=== PATIENT | female | born 1965 | race Caucasian/White ===

== ENCOUNTER 2019-08-27 11:49 | Outpatient (CLI) | payer OTHER, SELFPAY ==
[2019-08-27 13:47] LABS: Alanine Aminotransferase 18 U/L (4-35); Albumin Level 4.8 g/dL (3.5-5.1); Alkaline Phosphatase 100 U/L (38-126); Aspartate Amino Transferase 24 U/L (14-36); Bilirubin,Total 0.5 mg/dL (0.2-1.3); Blood Urea Nitrogen 11 mg/dL (7-17); Carbon Dioxide 26 mmol/L (22-30); Chloride 101 mmol/L (98-107); Cholesterol 216 mg/dL (0-200); Estimated Glomerular Filt Rate > 60; Glucose 83 mg/dL (65-105); HDL Direct 71 mg/dL; Sodium 138 mmol/L (137-145); Triglycerides 119 mg/dL (<150)
[2019-08-27 13:50] LABS: Basophils Percent Auto 0.8 % (0.2-1.2); Eosinophils Percent Auto 0.2 % (0-4.4); Hematocrit 40.7 % (37.0-47.0); Hemoglobin 13.1 g/dL (12.0-15.0); Immature Granulocyte Absolute 0.02 K/mm3 (0.00-0.031); Immature Granulocyte Percent A 0.4 % (0-0.5); Lymphocytes Percent Auto 28.3 % (18.3-44.2); Mean Corpuscular HGB Conc 32.2 g/dl (32-36); Mean Corpuscular Hemoglobin 28.9 pg (26-34); Mean Corpuscular Volume 89.8 fl (80-100); Monocytes Absolute Auto 0.5 K/mm3 (0.1-0.6); Monocytes Percent Auto 8.5 % (2.6-8.5); Neutrophils Absolute Auto 3.3 K/mm3 (1.3-6.7); Neutrophils Percent Auto 61.8 % (45.5-73.1); Platelet Count Result 333 k/mm3 (150-375); Red Blood Count 4.53 M/mm3 (4.2-5.4); Red Cell Distribution Width 14.2 % (11.5-14.5); White Blood Count 5.3 K/mm3 (4.5-10.0)
[2019-08-27 13:59] LABS: LDL Cholesterol Direct 121 mg/dL
[2019-08-27 14:12] LABS: Free T4 Free Thyroxine 1.09 ng/mL (0.78-2.19)
[2019-08-27 14:26] LABS: Creatinine Urine 253.7 mg/dL
[2019-08-27 14:30] LABS: MALB Creatinine Ratio 10.4 mg/g (0-30); Microalbumin Urine Random 26.4 mg/L (0-16.7)
[2019-08-27 14:45] LABS: Total Triiodothyronine (T3) 1.39 NG/ML (0.97-1.69)
== END 2019-08-27 11:50 | disposition home or self-care (01) ==
PROVIDERS: PCP Family Medicine; Visit Provider Family Medicine
DX: R80.9 Proteinuria, unspecified (principal); Z13.0 Encounter for screening for diseases of the blood and blood-forming organs and certain disorders involving the immune mechanism; Z13.6 Encounter for screening for cardiovascular disorders; E58 Dietary calcium deficiency
CPT/HCPCS: 36415; 80053; 80061; 82043; 82306; 84439; 84443; 84480; 85025

== ENCOUNTER 2019-10-04 08:15 | Outpatient (CLI) | payer OTHER, SELFPAY ==
--- NOTE | ~2019-10-04 | XR_ITS ---
EXAMINATION: XR_ENEMABAC_CR DATE: 10/04/2019 10:01 INDICATION: Incomplete colonoscopy TECHNIQUE: A major assembly inspector radiograph was obtained. A catheter was inserted into the patient's rectum. Contra st was infused by gravity. Gas was infused by hand pump. Fluoroscopic spot images and conventional ra diographs were obtained. Fluoroscopy exposure time was 3.7 minutes. The DAP for this procedure was 13 1.5 Gycm2. 36 images were obtained. COMPARISON: None. FINDINGS: Operations Clerk image demonstrates changes of cholecystectomy, lumbar fusion, and left total hip arth roplasty as well as ventriculoperitoneal shunt catheter tubing. There are phleboliths of the pelvis. No dilated loops of bowel are evident. The colon is normal in caliber without evidence of stricture o r distention. No suspicious mass is identified. IMPRESSION: 1. Unremarkable examination. Reviewed, dictated and finalized at location A. ONAL LINES ADVISOR
--- NOTE | ~2019-10-04 | MM_ITS ---
EXAMINATION: MM screening [facility] BI w iraida HISTORY: Screening mammogram TECHNIQUE: Craniocaudal and mediolateral oblique 3-D tomosynthesis images were obtained and synthetic 2-D images were generated. CAD analysis was submitted and interpreted. COMPARISON: Comparison to multiple prior studies sequentially, with oldest reviewed study dated 10/25. BREAST PARENCHYMAL COMPOSITION: There are scattered areas of fibroglandular density. FINDINGS: There are benign-appearing bilateral breast masses which have decreased in size over time. There is no evidence of suspicious mass, calcification, or architectural distortion to suggest malign edilma in either breast. There has been no suspicious interval change. IMPRESSION: 1. No mammographic evidence of malignancy. 2. Recommend routine screening mammography in one year. BI-RADS Category 2: Benign finding(s).. Reviewed, dictated and finalized at location A. PRODUCTION ASSISTANT
== END 2019-10-04 08:16 | disposition home or self-care (01) ==
PROVIDERS: PCP Family Medicine; Visit Provider Nurse Practitioner Family
DX: Z12.31 Encounter for screening mammogram for malignant neoplasm of breast (principal); Z53.9 Procedure and treatment not carried out, unspecified reason; Z80.0 Family history of malignant neoplasm of digestive organs
CPT/HCPCS: 74280; 77063; 77067

== ENCOUNTER 2020-09-23 14:04 | Outpatient (CLI) | payer OTHER, SELFPAY ==
--- NOTE | ~2020-09-23 | CT_ITS ---
EXAMINATION: CT femur LT wo con DATE: 09/23/2020 14:38 INDICATION: Left femoral pain TECHNIQUE: High resolution computed tomography (CT) of the left femur was performed without intraveno us contrast. Additional sagittal and coronal reconstructions were performed. Automated exposure contr ol and iterative reconstruction technique were employed. The dose-length product was 1127.18 mGy-cm. COMPARISON: Left hip radiograph dated 10/05/2010 FINDINGS: Noncemented left total hip arthroplasty which appears well seated in near-anatomic alignment. The marilee tabular component is affixed with a couple screws. No significant asymmetric polyethylene liner wear appreciated. There is a small lucency with thin sclerotic margins along the anterosuperior aspect of the acetabulum which could be related to either localized particle disease or degenerative subarticul ar cystic change related to arthritis preceding the arthroplasty. Comminuted intra-articular fracture of the distal left femur which extends approximately 11 cm proxim al to the level of the joint line. This is fixed with a lateral plate and screws including distal scr ews spanning the medial and lateral femoral condyles. The distal fragments of the medial and lateral femoral condyles have healed with a relatively congruent articular surface along the fracture line in volving the weightbearing medial femoral condyle. There is a persistent fracture gap measuring a mini mum of 7 mm along the articular surface of the medial trochlea. A healing fragment of bone ejection a couple millimeter anteriorly from the expected location of the trochlear groove. There is a residual lucent fracture gap between the main proximal diaphyseal fracture fragment and th e fused fragments comprising the medial and lateral femoral condyles and anteromedial aspect of the m etadiaphyseal region. At its minimum the lucency measures approximately mm between the anteromedial m etaphyseal diaphyseal fragment and some callus formation along the medial cortex of the proximal frag ment. No evident olrri-cortication along the ununited portion of the fracture to suggest nonunion. No evident hip or knee joint effusion. Soft tissues in the visualized pelvis and left thigh are unrem arkable. No pathologically enlarged left pelvic or inguinal lymphadenopathy. IMPRESSION: 1. Healing internally fixed intra-articular fracture of the distal left femur with fracture gap and s ome incongruity along the articular cortex at the patellofemoral articulation. The distal fragments i nfused over the main metadiaphyseal fracture plane remains ununited. 2. Noncemented left total hip arthroplasty in near-anatomic alignment with no joint effusion or acute osseous abnormality. Reviewed, dictated and finalized at location A. ET RESEARCH ANALYST IMPRESSION: 1. Healing internally fixed intra-articular fracture of the distal left femur w ith fracture gap and some incongruity along the articular cortex at the patello femoral articulation. The distal fragments infused over the main metadiaphyseal fracture plane remains ununited. 2. Noncemented left total hip arthroplasty in near-anatomic alignment with no j oint effusion or acute osseous abnormality.
== END 2020-09-23 14:05 | disposition home or self-care (01) ==
PROVIDERS: PCP Internal Medicine
DX: M89.8X5 Other specified disorders of bone, thigh (principal); S72.402D Unspecified fracture of lower end of left femur, subsequent encounter for closed fracture with routine healing; Z96.642 Presence of left artificial hip joint
CPT/HCPCS: 73700

== ENCOUNTER 2020-10-30 09:47 | Outpatient (CLI) | payer OTHER, SELFPAY ==
[2020-10-30 10:24] LABS: Basophils Percent Auto 0.8 % (0.2-1.2); Hemoglobin 13.6 g/dL (12.0-15.0); Lymphocytes Absolute Auto 1.18 K/mm3 (0.9-3.2); Lymphocytes Percent Auto 32.2 % (18.3-44.2); Mean Corpuscular HGB Conc 33.2 g/dl (32-36); Mean Corpuscular Hemoglobin 31.5 pg (26-34); Mean Corpuscular Volume 94.9 fl (80-100); Mean Platelet Volume 9.1 fl (7.4-10.4); Monocytes Absolute Auto 0.4 K/mm3 (0.1-0.6); Monocytes Percent Auto 11.2 % (2.6-8.5); Neutrophils Absolute Auto 2.1 K/mm3 (1.3-6.7); Neutrophils Percent Auto 55.8 % (45.5-73.1); Platelet Count Result 239 k/mm3 (150-375); Red Blood Count 4.32 M/mm3 (4.2-5.4); Red Cell Distribution Width 13.1 % (11.5-14.5); White Blood Count 3.7 K/mm3 (4.5-10.0)
[2020-10-30 10:41] LABS: Alanine Aminotransferase 15 U/L (4-35); Albumin Level 4.3 g/dL (3.5-5.1); Alkaline Phosphatase 88 U/L (38-126); Anion Gap 6 mmol/L (8-16); Aspartate Amino Transferase 24 U/L (14-36); Bilirubin,Total 0.6 mg/dL (0.2-1.3); Blood Urea Nitrogen 10 mg/dL (7-17); Calcium 9.3 mg/dL (8.4-10.2); Carbon Dioxide 30 mmol/L (22-30); Chloride 105 mmol/L (98-107); Cholesterol 192 mg/dL (0-200); Estimated Glomerular Filt Rate > 60; Glucose 97 mg/dL (65-105); HDL Direct 56 mg/dL; Potassium 3.9 mmol/L (3.4-5.0); Sodium 141 mmol/L (137-145); Triglycerides 105 mg/dL (<150)
[2020-10-30 10:45] LABS: Hemoglobin A1C 4.8 % (<5.7)
[2020-10-30 10:52] LABS: LDL Cholesterol Direct 101 mg/dL
[2020-10-30 11:21] LABS: Free T4 Free Thyroxine 0.86 ng/mL (0.78-2.19)
[2020-11-03 08:34] LABS: Insulin Level Total 3.1 uIU/mL (<=19.6)
[2020-11-04 00:53] LABS: Vitamin D 1,25 (OH)2 Total 42 pg/mL (18-72); Vitamin D2 1,25 (OH)2 <8 pg/mL; Vitamin D3 1,25 (OH)2 42 pg/mL
== END 2020-10-30 09:48 | disposition home or self-care (01) ==
LOC: ANHLAB 09:50
PROVIDERS: PCP Internal Medicine; Visit Provider Internal Medicine
DX: E55.9 Vitamin D deficiency, unspecified (principal); Z79.899 Other long term (current) drug therapy
CPT/HCPCS: 36415; 80053; 80061; 82652; 83036; 83525; 84439; 84443; 85025

== ENCOUNTER 2020-11-19 08:55 | Outpatient (CLI) | payer OTHER, SELFPAY ==
--- NOTE | ~2020-11-19 | DEXA_ITS ---
Bone Density Report Name: Sahara Colby Age: 55 Sex: Female Ethnicity: White Date of : 1965 Indication: postmenopausal; parental hip fracture; height loss; prior fracture; Referring Provider: GONZALO NORTON Study: Bone densitometry was performed. Exam Date: November 19, 2020 Accession number: [id number] Bone Density: Region BMD T-score Z-score Classification AP Spine (L1, L2, L3) 0.868 -1.4 -0.2 Osteopenia Femoral Neck (Right) 0.805 -0.4 0.7 Normal Total Hip (Right) 0.835 -0.9 -0.1 Normal World Health Organization criteria for BMD impression classify patients as: Normal (T-score at or above -1.0), Osteopenia (T-score between -1.0 and -2.5), or Osteoporosis (T-score at or below -2.5). 10-year Fracture Risk: FRAX not reported because: Prior hip or vertebral fracture Treated for osteoporosis Clinical Information Provided by Patient: Have had a previous hip or vertebral fracture Has had a low trauma fracture Parent has had a hip fracture Is being treated for osteoporosis Has used the following medications: Forteo (i.e. parathyroid hormone), Fosamax (i.e. alendronate), Vitamin D Patient maximum height was 70 Menopause Age: 48 Drinks caffeinated beverages Onset of menses at age 15 Number of children 2 Missed period for more than 6 months in a row Impression: The patient has low bone mass, based on the Total Spine T-score. The patient has risk factors, including: parental hip fracture, previous fracture. Discussion: It is important to ask patients whether they are taking their medications and to encourage continued and appropriate compliance with their osteoporosis therapies to reduce fracture risk. It is also important to review their risk factors and encourage appropriate calcium and vitamin D intakes, exercise, fall prevention and other lifestyle measures. Follow-Up: Consider a repeat BMD and Vertebral Fracture Assessment (VFA) exam in 2 years or sooner if medically necessary, to reassess this patient's status. Reported by: VENESSA on 11/19/2020 9:28:00 AM. Reviewed, dictated and finalized at location A. ENOCH
--- NOTE | ~2020-11-19 | MM_ITS ---
EXAMINATION: MM screening [facility] BI w ir[place]ada HISTORY: Screening TECHNIQUE: Craniocaudal and mediolateral oblique 3-D tomosynthesis images were obtained and synthetic 2-D images were generated. CAD analysis was submitted and interpreted. COMPARISON: Comparison to multiple prior studies sequentially, with oldest reviewed study dated 11/03. BREAST PARENCHYMAL COMPOSITION: The breasts are heterogeneously dense, which may obscure small masses . FINDINGS: Bilateral breast masses are stable or diminished in size compared with prior examination. N o new masses, calcifications or architectural distortion to suggest malignancy. There is no evidence of suspicious mass, calcification, or architectural distortion to suggest malignancy in either breast . There has been no suspicious interval change. IMPRESSION: 1. No mammographic evidence of malignancy. 2. Recommend routine screening mammography in one year. BI-RADS Category 2: Benign finding(s). Reviewed, dictated and finalized at location A.
== END 2020-11-19 08:56 | disposition home or self-care (01) ==
PROVIDERS: PCP Internal Medicine; Visit Provider Internal Medicine
DX: Z12.31 Encounter for screening mammogram for malignant neoplasm of breast (principal); Z78.0 Asymptomatic menopausal state
CPT/HCPCS: 77063; 77067; 77080

== ENCOUNTER 2020-11-19 10:23 | Outpatient (CLI) | payer OTHER, SELFPAY | END 2020-11-19 10:24 | disposition home or self-care (01) | PROVIDERS: PCP Internal Medicine | DX: Z23 Encounter for immunization (principal) | CPT/HCPCS: 0001A; 91300 ==

== ENCOUNTER 2020-12-10 11:19 | Outpatient (CLI) | payer OTHER, SELFPAY | END 2020-12-10 11:20 | disposition home or self-care (01) | LOC: ANHCOVIDVC 11:19 | PROVIDERS: PCP Internal Medicine | DX: Z23 Encounter for immunization (principal) | CPT/HCPCS: 0002A; 91300 ==

== ENCOUNTER 2021-05-28 13:25 | Outpatient (CLI) | payer OTHER, SELFPAY ==
[2021-05-28 14:01] LABS: Alanine Aminotransferase 17 U/L (4-35); Alkaline Phosphatase 92 U/L (38-126); Anion Gap 10 mmol/L (8-16); Aspartate Amino Transferase 26 U/L (14-36); Bilirubin,Total 0.8 mg/dL (0.2-1.3); Blood Urea Nitrogen 11 mg/dL (7-17); Calcium 10.2 mg/dL (8.4-10.2); Carbon Dioxide 28 mmol/L (22-30); Chloride 101 mmol/L (98-107); Cholesterol 224 mg/dL (0-200); Estimated Glomerular Filt Rate > 60; Glucose 97 mg/dL (65-110); HDL Direct 65 mg/dL; Potassium 3.9 mmol/L (3.4-5.0); Sodium 139 mmol/L (137-145); Triglycerides 88 mg/dL (<150)
[2021-05-28 14:12] LABS: LDL Cholesterol Direct 127 mg/dL
[2021-06-01 07:36] LABS: Apolipoprotein B 101 mg/dL (<90)
[2021-06-02 11:47] LABS: Vitamin D 1,25 (OH)2 Total 45 pg/mL (18-72); Vitamin D2 1,25 (OH)2 <8 pg/mL; Vitamin D3 1,25 (OH)2 45 pg/mL
== END 2021-05-28 13:26 | disposition home or self-care (01) ==
LOC: ANHLAB 13:27
PROVIDERS: PCP Internal Medicine; Visit Provider Internal Medicine
DX: Z51.81 Encounter for therapeutic drug level monitoring (principal); Z79.899 Other long term (current) drug therapy; E55.9 Vitamin D deficiency, unspecified
CPT/HCPCS: 36415; 80053; 80061; 82172; 82652

== ENCOUNTER 2021-11-17 10:58 | Outpatient (CLI) | payer OTHER, SELFPAY ==
[2021-11-17 11:25] LABS: Basophils Percent Auto 0.6 % (0.2-1.2); Hematocrit 39.5 % (37.0-47.0); Hemoglobin 13.3 g/dL (12.0-15.0); Immature Granulocyte Absolute 0.02 K/mm3 (0.00-0.031); Immature Granulocyte Percent A 0.3 % (0-0.5); Lymphocytes Absolute Auto 1.28 K/mm3 (0.9-3.2); Mean Corpuscular HGB Conc 33.7 g/dl (32-36); Mean Corpuscular Hemoglobin 32.3 pg (26-34); Mean Corpuscular Volume 95.9 fl (80-100); Mean Platelet Volume 9.6 fl (7.4-10.4); Monocytes Absolute Auto 0.4 K/mm3 (0.1-0.6); Monocytes Percent Auto 6.2 % (2.6-8.5); Neutrophils Absolute Auto 5.3 K/mm3 (1.3-6.7); Neutrophils Percent Auto 74.9 % (45.5-73.1); Platelet Count Result 250 k/mm3 (150-375); Red Blood Count 4.12 M/mm3 (4.2-5.4); Red Cell Distribution Width 12.6 % (11.5-14.5); White Blood Count 7.1 K/mm3 (4.5-10.0)
[2021-11-17 12:11] LABS: Alanine Aminotransferase 14 U/L (4-35); Albumin Level 4.2 g/dL (3.5-5.1); Alkaline Phosphatase 70 U/L (38-126); Anion Gap 5 mmol/L (8-16); Aspartate Amino Transferase 26 U/L (14-36); Bilirubin,Total 0.3 mg/dL (0.2-1.3); Blood Urea Nitrogen 14 mg/dL (7-17); Carbon Dioxide 30 mmol/L (22-30); Chloride 104 mmol/L (98-107); Cholesterol 165 mg/dL (0-200); Estimated Glomerular Filt Rate > 60; Glucose 101 mg/dL (65-110); HDL Direct 59 mg/dL; Potassium 4.1 mmol/L (3.4-5.0); Sodium 139 mmol/L (137-145); Triglycerides 53 mg/dL (<150)
[2021-11-17 12:34] LABS: Hemoglobin A1C 5.1 % (<5.7)
[2021-11-17 12:37] LABS: LDL Cholesterol Direct 72 mg/dL
[2021-11-17 12:46] LABS: Free T4 Free Thyroxine 0.84 ng/mL (0.78-2.19)
== END 2021-11-17 10:59 | disposition home or self-care (01) ==
LOC: ANHLAB 11:00
PROVIDERS: PCP Internal Medicine; Visit Provider Internal Medicine
DX: E78.2 Mixed hyperlipidemia (principal); Z13.29 Encounter for screening for other suspected endocrine disorder; Z51.81 Encounter for therapeutic drug level monitoring; Z79.899 Other long term (current) drug therapy
CPT/HCPCS: 36415; 80053; 80061; 83036; 84439; 84443; 85025

== ENCOUNTER → 2021-11-24 14:29 | Outpatient (REF) | payer OTHER, SELFPAY | LOC: ANHLAB 14:29 | PROVIDERS: PCP Internal Medicine; Visit Provider Nurse Practitioner | DX: C44.229 Squamous cell carcinoma of skin of left ear and external auricular canal (principal) | CPT/HCPCS: 88305 ==

== ENCOUNTER 2022-01-08 12:29 | Outpatient (CLI) | payer OTHER, SELFPAY ==
--- NOTE | ~2022-01-08 | MR_ITS ---
EXAMINATION: MR brain/brain stem wo/w con DATE: 01/08/2022 14:11 INDICATION: Headache, unspecified. TECHNIQUE: Magnetic resonance imaging (MRI) of the brain and brainstem was performed without and with 15 mL MultiHance intravenous contrast. COMPARISON: Brain MRI 08/27/2013 FINDINGS: There is no intracranial hemorrhage, acute infarction, or abnormal intracranial mass lesion . There is diffuse pachymeningeal thickening and enhancement. There is a developmental venous anomaly in left frontal lobe. The ventricles are normal in size. There is a reconstruction plate that floor of left orbit. The paranasal sinuses are clear. The mastoid air cells are normal. IMPRESSION: 1. Diffuse pachymeningeal thickening and enhancement. This finding is most commonly an incidental fin ding secondary to a history of lumbar puncture. Less commonly, this finding may be seen with intracra nial hypotension or meningitis. Reviewed, dictated and finalized at location A. IMPRESSION: 1. Diffuse pachymeningeal thickening and enhancement. This finding is most comm only an incidental finding secondary to a history of lumbar puncture. Less comm only, this finding may be seen with intracranial hypotension or meningitis.
--- NOTE | ~2022-01-08 | XR_ITS ---
EXAMINATION: XR orbit foreign body DATE: 01/08/2022 12:58 INDICATION: Left orbital fracture. MRI clearance. TECHNIQUE: 3 views of the orbits were obtained. COMPARISON: None. FINDINGS: There is rightward deviation of the nasal septum. No acute fracture. There is a reconstruct ion plate with screws at the floor of left orbit. IMPRESSION: 1. Reconstruction plate with screws at the floor of left orbit. Reviewed, dictated and finalized at location A.
[2022-01-08 13:16] LABS: Estimated Glomerular Filt Rate > 60
== END 2022-01-08 12:30 | disposition home or self-care (01) ==
PROVIDERS: PCP Internal Medicine; Visit Provider Internal Medicine
DX: R51.9 Headache, unspecified (principal)
CPT/HCPCS: 70030; 70553; A9577

== ENCOUNTER 2022-01-25 01:36 | Day surgery (SDC) | payer OTHER, SELFPAY ==
[2022-01-11 14:45] VITALS: BMI 25.2
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
[2022-01-25 10:31] VITALS: BP 128/80; PULSE 66; RESP 18; TEMP 36.1; O2SAT 66; BMI 25.8
[2022-01-25] MEDS: LACTATED RINGERS 1,000 ML 150 ML IV CONT (10:47)
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
[2022-01-25 11:31] VITALS: BP 96/60; PULSE 58; RESP 15; O2SAT 99
[2022-01-25 11:41] VITALS: BP 111/66; PULSE 56; RESP 15; O2SAT 98
[2022-01-25 11:51] VITALS: BP 126/77; PULSE 54; RESP 21; O2SAT 99
== END 2022-01-25 11:53 | disposition home or self-care (01) ==
PROVIDERS: PCP Internal Medicine; Visit Provider Internal Medicine Gastroenterology
PROC: 0DJD8ZZ Inspection of Lower Intestinal Tract, Via Natural or Artificial Opening Endoscopic (ICD-10-PCS; CPT 45378; principal; 2022-01-25 11:30)
DX: Z12.11 Encounter for screening for malignant neoplasm of colon (principal); K64.8 Other hemorrhoids; Z80.0 Family history of malignant neoplasm of digestive organs; E78.5 Hyperlipidemia, unspecified; F41.8 Other specified anxiety disorders; F90.9 Attention-deficit hyperactivity disorder, unspecified type; G25.81 Restless legs syndrome
CPT/HCPCS: 45378; J2704; J7120

== ENCOUNTER → 2022-03-01 10:37 | Outpatient (REF) | payer OTHER, SELFPAY | LOC: ANHLAB 10:37 | PROVIDERS: PCP Internal Medicine; Visit Provider Nurse Practitioner | DX: C44.311 Basal cell carcinoma of skin of nose (principal) | CPT/HCPCS: 88305; 88331 ==

== ENCOUNTER 2022-05-12 14:43 | Outpatient (CLI) | payer OTHER, SELFPAY ==
[2022-05-12 15:37] LABS: Basophils Percent Auto 0.7 % (0.2-1.2); Hematocrit 38.4 % (37.0-47.0); Hemoglobin 12.6 g/dL (12.0-15.0); Immature Granulocyte Absolute 0.01 K/mm3 (0.00-0.031); Immature Granulocyte Percent A 0.2 % (0-0.5); Lymphocytes Absolute Auto 1.14 K/mm3 (0.9-3.2); Lymphocytes Percent Auto 27.9 % (18.3-44.2); Mean Corpuscular HGB Conc 32.8 g/dl (32-36); Mean Corpuscular Volume 94.3 fl (80-100); Mean Platelet Volume 9.6 fl (7.4-10.4); Monocytes Absolute Auto 0.4 K/mm3 (0.1-0.6); Monocytes Percent Auto 10.8 % (2.6-8.5); Neutrophils Absolute Auto 2.5 K/mm3 (1.3-6.7); Neutrophils Percent Auto 60.4 % (45.5-73.1); Platelet Count Result 252 k/mm3 (150-375); Red Blood Count 4.07 M/mm3 (4.2-5.4); Red Cell Distribution Width 12.4 % (11.5-14.5); White Blood Count 4.1 K/mm3 (4.5-10.0)
[2022-05-12 15:47] LABS: Hemoglobin A1C 5.3 % (<5.7)
[2022-05-12 15:50] LABS: Alanine Aminotransferase 24 U/L (6-35); Albumin Level 4.6 g/dL (3.5-5.1); Alkaline Phosphatase 77 U/L (38-126); Anion Gap 9 mmol/L (8-16); Aspartate Amino Transferase 26 U/L (14-36); Bilirubin,Total 0.5 mg/dL (0.2-1.3); Blood Urea Nitrogen 13 mg/dL (7-17); Calcium 9.3 mg/dL (8.4-10.2); Carbon Dioxide 28 mmol/L (22-30); Chloride 101 mmol/L (98-107); Cholesterol 174 mg/dL (0-200); Estimated Glomerular Filt Rate > 60; Glucose 118 mg/dL (65-110); HDL Direct 60 mg/dL; Potassium 3.3 mmol/L (3.4-5.0); Sodium 138 mmol/L (137-145); Triglycerides 100 mg/dL (<150)
[2022-05-12 16:01] LABS: LDL Cholesterol Direct 83 mg/dL
[2022-05-12 16:41] LABS: Free T4 Free Thyroxine 0.96 ng/mL (0.78-2.19); Vitamin D 25 Hydroxy 77.6 ng/mL
[2022-05-12 17:18] LABS: Appearance Urine Clear (Clear); Bilirubin Urine Negative (Negative); Blood Urine Negative (Negative); Color Urine Yellow (Yellow); Glucose Urine UA Negative (Negative); Ketones Urine Negative (Negative); Leukocyte Esterase Ur 1+ LEU/UL (Negative); Nitrate Urine Negative (Negative); Protein Urine Negative (Negative); Urobilinogen Urine 0.2 mg/dL (<2.0); pH Urine 5.5 (5.0-9.0)
[2022-05-12 17:23] LABS: RBC Urine 0-2 /hpf (0-2); Squamous Epithelial Cell Urine Rare /hpf (Few); WBC Urine 0-3 /hpf
[2022-05-12 17:27] LABS: Add Urine Microscopic? YES
== END 2022-05-12 14:44 | disposition home or self-care (01) ==
LOC: ANHLAB 14:44
PROVIDERS: PCP Internal Medicine; Visit Provider Internal Medicine
DX: E78.5 Hyperlipidemia, unspecified (principal); Z13.29 Encounter for screening for other suspected endocrine disorder; Z79.899 Other long term (current) drug therapy; E55.9 Vitamin D deficiency, unspecified; Z13.1 Encounter for screening for diabetes mellitus
CPT/HCPCS: 36415; 80048; 80061; 80076; 81001; 82306; 83036; 84439; 84443; 85025

== ENCOUNTER 2022-12-14 17:21 | Outpatient (CLI) | payer OTHER, SELFPAY ==
[2022-12-14 17:44] LABS: Alanine Aminotransferase 22 U/L (6-35); Albumin Level 4.2 g/dL (3.5-5.1); Alkaline Phosphatase 71 U/L (38-126); Anion Gap 3 mmol/L (8-16); Aspartate Amino Transferase 28 U/L (14-36); Bilirubin,Total 0.5 mg/dL (0.2-1.3); Blood Urea Nitrogen 11 mg/dL (7-17); Calcium 9.1 mg/dL (8.4-10.2); Carbon Dioxide 31 mmol/L (22-30); Chloride 105 mmol/L (98-107); Cholesterol 204 mg/dL (0-200); Estimated Glomerular Filt Rate > 60; Glucose 115 mg/dL (65-110); HDL Direct 61 mg/dL; Sodium 139 mmol/L (137-145); Triglycerides 157 mg/dL (<150)
[2022-12-14 17:55] LABS: LDL Cholesterol Direct 102 mg/dL
== END 2022-12-14 17:22 | disposition home or self-care (01) ==
LOC: ANHLAB 17:23
PROVIDERS: PCP Internal Medicine; Visit Provider Internal Medicine
DX: Z51.81 Encounter for therapeutic drug level monitoring (principal); Z79.899 Other long term (current) drug therapy; E78.5 Hyperlipidemia, unspecified
CPT/HCPCS: 36415; 80053; 80061

== ENCOUNTER 2022-12-15 12:29 | Outpatient (CLI) | payer OTHER, SELFPAY ==
[2022-12-20 19:38] LABS: Lyme Disease Ab (IgM), Blot Negative (Negative); Lyme Disease Ab(IgG), Blot Negative (Negative)
== END 2022-12-15 12:30 | disposition home or self-care (01) ==
LOC: ANHLAB 12:31
PROVIDERS: PCP Internal Medicine; Visit Provider Internal Medicine
DX: T14.8XXA Other injury of unspecified body region, 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 (principal)
CPT/HCPCS: 36415; 86617

== ENCOUNTER 2023-05-31 12:54 | Outpatient (CLI) | payer OTHER, SELFPAY | END 2023-05-31 12:55 | disposition home or self-care (01) | LOC: ANHLAB 12:55 | PROVIDERS: PCP Internal Medicine; Visit Provider Internal Medicine | DX: R53.83 Other fatigue (principal); Z79.899 Other long term (current) drug therapy | CPT/HCPCS: 36415; 84439; 84443 ==

== ENCOUNTER 2023-06-16 12:12 | Outpatient (CLI) | payer OTHER, SELFPAY ==
[2023-06-16 13:18] LABS: Vitamin D 25 Hydroxy 56.7 ng/mL
[2023-06-16 13:25] LABS: Alanine Aminotransferase 27 U/L (6-35); Albumin Level 4.5 g/dL (3.5-5.1); Alkaline Phosphatase 80 U/L (38-126); Anion Gap 9 mmol/L (8-16); Aspartate Amino Transferase 33 U/L (14-36); Bilirubin,Total 0.7 mg/dL (0.2-1.3); Blood Urea Nitrogen 10 mg/dL (7-17); Calcium 9.6 mg/dL (8.4-10.2); Carbon Dioxide 28 mmol/L (22-30); Chloride 102 mmol/L (98-107); Cholesterol 194 mg/dL (0-200); Estimated Glomerular Filt Rate > 60; Glucose 91 mg/dL (65-110); HDL Direct 62 mg/dL; Potassium 3.3 mmol/L (3.4-5.0); Sodium 139 mmol/L (137-145); Triglycerides 114 mg/dL (<150)
[2023-06-16 13:38] LABS: LDL Cholesterol Direct 101 mg/dL
== END 2023-06-16 12:13 | disposition home or self-care (01) ==
LOC: ANHLAB 12:13
PROVIDERS: PCP Internal Medicine; Visit Provider Internal Medicine
DX: Z13.1 Encounter for screening for diabetes mellitus (principal); Z79.899 Other long term (current) drug therapy; E78.5 Hyperlipidemia, unspecified; E55.9 Vitamin D deficiency, unspecified; Z13.29 Encounter for screening for other suspected endocrine disorder
CPT/HCPCS: 36415; 80053; 80061; 82306; 83036; 84439; 84443

== ENCOUNTER 2023-11-22 12:48 | Outpatient (CLI) | payer OTHER, SELFPAY ==
--- NOTE | ~2023-11-22 | CT_ITS ---
Head CT History: Headache Technique: Axial imaging of the brain was performed prior to and following intravenous administratio n of 100 cc of Omnipaque 350 contrast material. Dose reduction technique was used on this scan by uti kalyning automated exposure control and iterative reconstruction technique. The dose-length product (DL P) was 1362.00 mGy-cm. Findings: There is no evidence of intracranial hemorrhage, mass lesion, or acute infarct. Brain par enchyma appears normal. The ventricles and subarachnoid spaces are normal in size. The calvarium ap pears normal. The visualized paranasal sinuses and mastoid air cells are clear. No abnormal postcontrast enhancement identified. Impression: No significant abnormality seen. Reviewed, dictated and finalized at [facility]. Impression: No significant abnormality seen.
[2023-11-22 13:15] LABS: Estimated Glomerular Filt Rate > 60
== END 2023-11-22 12:49 | disposition home or self-care (01) ==
PROVIDERS: PCP Internal Medicine; Visit Provider Internal Medicine
DX: R51.9 Headache, unspecified (principal)
CPT/HCPCS: 70470; Q9967

== ENCOUNTER 2024-01-25 11:49 | Outpatient (CLI) | payer OTHER, SELFPAY ==
[2024-01-25 12:59] LABS: Alanine Aminotransferase 22 U/L (6-35); Albumin Level 4.7 g/dL (3.5-5.1); Alkaline Phosphatase 69 U/L (38-126); Anion Gap 7 mmol/L (4-12); Aspartate Amino Transferase 26 U/L (14-36); Bilirubin,Total 0.7 mg/dL (0.2-1.3); Blood Urea Nitrogen 12 mg/dL (7-17); Calcium 9.6 mg/dL (8.4-10.2); Carbon Dioxide 29 mmol/L (22-30); Chloride 105 mmol/L (98-107); Cholesterol 144 mg/dL (0-200); Estimated Glomerular Filt Rate > 60; Glucose 105 mg/dL (65-110); HDL Direct 59 mg/dL; Potassium 4.1 mmol/L (3.4-5.0); Sodium 141 mmol/L (137-145); Triglycerides 82 mg/dL (<150)
[2024-01-25 13:11] LABS: LDL Cholesterol Direct 67 mg/dL
== END 2024-01-25 11:50 | disposition home or self-care (01) ==
LOC: ANHLAB 11:52
PROVIDERS: PCP Internal Medicine; Visit Provider Internal Medicine
DX: E78.5 Hyperlipidemia, unspecified (principal); Z79.899 Other long term (current) drug therapy
CPT/HCPCS: 36415; 80053; 80061

== ENCOUNTER 2024-03-09 10:41 | Outpatient (CLI) | payer OTHER, SELFPAY ==
--- NOTE | ~2024-03-09 | MM_ITS ---
EXAMINATION: MM screening [facility] BI w iraida HISTORY: Screening TECHNIQUE: Craniocaudal and mediolateral oblique 3-D tomosynthesis images were obtained and synthetic 2-D images were generated. CAD analysis was submitted and interpreted. COMPARISON: Comparison to multiple prior studies sequentially, with oldest reviewed study dated 03/28. BREAST PARENCHYMAL COMPOSITION: Not dense: There are scattered areas of fibroglandular density. FINDINGS: There is no evidence of suspicious mass, calcification, or architectural distortion to sugg est malignancy in either breast. There has been no suspicious interval change. IMPRESSION: 1. No mammographic evidence of malignancy. 2. Recommend routine screening mammography in one year. BI-RADS Category 1: Negative Reviewed, dictated and finalized at location B.
== END 2024-03-09 10:42 | disposition home or self-care (01) ==
PROVIDERS: PCP Internal Medicine; Visit Provider Nurse Practitioner Obstetrics & Gynecology
DX: Z12.31 Encounter for screening mammogram for malignant neoplasm of breast (principal)
CPT/HCPCS: 77063; 77067

== ENCOUNTER 2024-04-24 07:51 | Outpatient (CLI) | payer OTHER, SELFPAY ==
[2024-05-16 16:18] VITALS: BMI 26.6
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
== END 2024-04-25 07:18 | disposition home or self-care (01) ==
LOC: ANHCSM 07:52
PROVIDERS: PCP Internal Medicine; Visit Provider Internal Medicine
DX: G47.10 Hypersomnia, unspecified (principal); G47.61 Periodic limb movement disorder; G47.33 Obstructive sleep apnea (adult) (pediatric)
CPT/HCPCS: 95810

== ENCOUNTER 2024-05-17 15:30 | Outpatient (CLI) | payer OTHER, SELFPAY ==
[2024-05-17 16:17] LABS: Basophils Absolute Auto 0.1 K/mm3 (0.0-0.1); Basophils Percent Auto 0.8 % (0.2-1.2); Hematocrit 41.1 % (37.0-47.0); Hemoglobin 13.4 g/dL (12.0-15.0); Immature Granulocyte Absolute 0.01 K/mm3 (0.00-0.031); Immature Granulocyte Percent A 0.2 % (0-0.5); Lymphocytes Absolute Auto 1.54 K/mm3 (0.9-3.2); Lymphocytes Percent Auto 24.9 % (18.3-44.2); Mean Corpuscular HGB Conc 32.6 g/dl (32-36); Mean Corpuscular Hemoglobin 30.7 pg (26-34); Mean Corpuscular Volume 94.1 fl (80-100); Mean Platelet Volume 9.7 fl (7.4-10.4); Monocytes Absolute Auto 0.6 K/mm3 (0.1-0.6); Neutrophils Percent Auto 64.1 % (45.5-73.1); Platelet Count Result 275 k/mm3 (150-375); Red Blood Count 4.37 M/mm3 (4.2-5.4); Red Cell Distribution Width 12.8 % (11.5-14.5); White Blood Count 6.2 K/mm3 (4.5-10.0)
[2024-05-17 18:51] LABS: Iron 137 ug/dL (37-170)
[2024-05-17 18:56] LABS: Folic Acid 7.7 ng/mL (2.76->20)
[2024-05-17 19:00] LABS: Percent Iron Saturation 37 % (20-50)
[2024-05-17 19:09] LABS: Free T4 Free Thyroxine 0.87 ng/mL (0.78-2.19)
== END 2024-05-17 15:31 | disposition home or self-care (01) ==
LOC: ANHLAB 15:34
PROVIDERS: PCP Internal Medicine; Visit Provider Internal Medicine
DX: D64.9 Anemia, unspecified (principal); R41.89 Other symptoms and signs involving cognitive functions and awareness; Z79.899 Other long term (current) drug therapy; Z13.21 Encounter for screening for nutritional disorder; Z13.29 Encounter for screening for other suspected endocrine disorder
CPT/HCPCS: 36415; 82607; 82728; 82746; 83540; 83550; 84439; 84443; 85025

== ENCOUNTER 2024-06-06 13:49 | Outpatient (CLI) | payer OTHER, SELFPAY ==
--- NOTE | ~2024-06-06 | XR_ITS ---
EXAMINATION: XR UGIAC w barium swallow DATE: 06/06/2024 14:35 INDICATION: Intermittent vomiting TECHNIQUE: The patient drank thick barium, gas-producing crystals, and thin barium. A total of 1333 f luoroscopic images of the esophagus, stomach, and proximal small bowel were obtained. Fluoroscopy exp osure time was 2.1 minutes. Total DAP was 9.1 Gycm^2 COMPARISON: None. FINDINGS: The esophagus is normal without mass or stricture. Esophageal motility is normal. There is no hiatal hernia. There was no gastroesophageal reflux with provocative maneuvers. The stomach and pr oximal small bowel are normal. Incidentally noted 1 instrumentation for a and lower lumbar posterior spinal fusion. There also is likely intrathecal catheter projecting over the central canal is however lumbar and mid to lower thoracic spine. IMPRESSION: 1. Unremarkable esophagram and upper GI study. Reviewed, dictated and finalized at location A.
== END 2024-06-06 13:50 | disposition home or self-care (01) ==
LOC: ANHIMG 13:50
PROVIDERS: PCP Internal Medicine; Visit Provider Internal Medicine
DX: R11.10 Vomiting, unspecified (principal)
CPT/HCPCS: 74246

== ENCOUNTER 2024-07-12 08:56 | Outpatient (CLI) | payer OTHER, SELFPAY ==
[2024-08-05 12:28] VITALS: BMI 26.6
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
== END 2024-07-13 15:05 | disposition home or self-care (01) ==
LOC: ANHCSM 08:56
PROVIDERS: PCP Internal Medicine; Visit Provider Internal Medicine
DX: G47.33 Obstructive sleep apnea (adult) (pediatric) (principal)
CPT/HCPCS: 95800

== ENCOUNTER 2024-10-28 07:35 | Outpatient (CLI) | payer OTHER, SELFPAY ==
--- NOTE | ~2024-10-28 | MR_ITS ---
EXAMINATION: MR brain IAC wo/w con DATE: 10/28/2024 08:51 INDICATION: Hearing loss. TECHNIQUE: Magnetic resonance imaging (MRI) of the brain, brainstem, and internal auditory canals was performed without and with 17 mL ProHance intravenous contrast. COMPARISON: Brain MRI 01/08/2022, head CT 11/22/2023 FINDINGS: The cerebellar tonsils extend 7 mm inferior to foramen magnum, which is a new abnormality. There is diffuse pachymeningeal thickening and enhancement. These findings are consistent with intrac ranial hypotension. There are foci of increased T2-weighted signal intensity in the white matter in t he frontal lobes, which is normal for the patient's age. There is a developmental venous anomaly in l eft frontal lobe. The ventricles are normal in size. The internal auditory canals, inner ears, tympan ic cavities, and mastoid air cells are normal. The orbits are normal. There is mucosal thickening wit hin ann marie bullosa involving left middle turbinate. IMPRESSION: 1. Intracranial hypotension. Reviewed, dictated and finalized at location A.
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
--- OUTSIDE RECORDS SUMMARY | 2024-10-28 07:39 | XMS_ITS | Encounter Summary ---
Author Organization [facility] Address [address] [place] [address] Phone Care Team Providers Care Shiftman Name Role Phone Dejan Rankin MD Primary Care Provider [phone] Maynor Adame MD Primary Care Provider [phone] Encounter Details Date Type Department Care Team (Late st Contact Info) Description 10/26/2019 Telephone [facility] Scheduling [address] [place] [address] Sydni Sanchez Aleksandra Social History Tobacco Use Types Packs/Day Years Used Date Smoking Tobacco: Never Smokeless Tobacco: Never Alcohol Use Standard Drinks/Week Comments Yes 7 (1 standard drink = 0.6 oz pur e alcohol) Comments No Sex and Gender Information Value Date Recorded Sex Assigned at Not on file Legal Sex Female 6:28 AM TABLET TESTER Gender Identity Not on file Sexual Orientation Not on file 

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
--- OUTSIDE RECORDS SUMMARY | 2024-10-28 07:39 | XMS_ITS | Clinical Summary ---
Author Organization [facility] Address [address] [address] Care Team Providers Care Metallurgist Process Name Role Phone Maynor Adame MD Primary Care Provider [phone] Source Comments [facility],non-owned Affiliates and Associated Physician Practices is amultiple site organization consisting of ambulatory clinics and hospital sitesin [place], [place], [place] and [place]. This disclosure is being madepursuant to the Care Everywhere program and may not contain all information available regarding this patient. Last updated 18.[facility] [employer] Interpreting Immunizations Name Administration Dates Next Due MODERNA SARS-COV-2 COVID-19 VACCINE 0.25ML 11/21 Social History Tobacco Use Types Packs/Day Years Used Date Smoking Tobacco: Never Assessed Sex and Gender Information Value Date Recorded Sex Assigned at Not on file Gender Identity Not on file Sexual Orientation Not on file Plan of Treatment Health Maintenance Due Date Last Done Comments COLOGUARD (AGES 45-75) - COLON CA SCREENING 1963 COLON MONITORING 1963 COLONOSCOPY - COLON CA SCREENING 1963 CT COLONOGRAPHY - COLON CA SCREENING 1963 Colorectal Cancer Screening 1963 FIT - COLON CA SCREENING 1963 FLEX SIG - COLON CA SCREENING 1963 LIPID TESTING 1963 MAMMOGRAM 1963 PAP SMEAR 1963 HIV SCREENING 11/12/1978 HEPATITIS C SCREENING 11/08/1981 DTAP/TDAP/TD VACCINES (1 - Tdap) 11/12/1982 PNEUMOCOCCAL VACCINE 50+ (1 of 1 - PCV) 11/12/2013 ZOSTER VACCINE (1 of 2) 11/12/2013 COVID-19 VACCINE ( season) 2024 11/21/2021, 12/10/2020, 11/19/2020 INFLUENZA VACCINE (#1) 2024 , 04/23/2020, 04/21/2017, Additional history exists DEPRESSION SCREENING 08/08/2024 Respiratory Syncytial Virus (RSV) Vaccine Pt: or over 60 yrs (1 - 1-dose 75+ series) 11/12/2038 HEPATITIS B VACCINE Aged Out No longe r eligible based on patient's age to complete this topic HIB VACCINE Aged Out No longer eligi ble based on patient's age to complete this topic HPV VACCINE Aged Out No longer eligi ble based on patient's age to complete this topic MENINGOCOCCAL (Group B) VACCINE SHARED DECISION-MAKING Aged Out No longer eligible based on patient's age to complete this topic MENINGOCOCCAL GROUPS A/C/Y/W VACCINE Aged Out No longer eligible based on patient's age to complete this topic PNEUMOCOCCAL VACCINE Aged Out No long er eligible based on patient's age to complete this topic Care Teams Metallurgist Process Relationship Specialty Start Date End Date Maynor Adame MD [address] [facility] [address] [place] [address] PCP - General 11/30/21
== END 2024-10-28 07:36 | disposition home or self-care (01) ==
PROVIDERS: PCP Internal Medicine; Visit Provider Otolaryngology
DX: H90.41 Sensorineural hearing loss, unilateral, right ear, with unrestricted hearing on the contralateral side (principal); G96.810 Intracranial hypotension, unspecified
CPT/HCPCS: 70553; A9579

== ENCOUNTER 2025-01-16 16:29 | Outpatient (CLI) | payer OTHER, SELFPAY ==
--- NOTE | ~2025-01-16 | XR_ITS ---
Right foot Technique: AP, oblique, and lateral views were obtained. Clinical History: Pain Findings: No acute fracture or dislocation is seen. There is hallux valgus, minimal degenerative marie ge of the first MTP joint. The remaining joint spaces are preserved without erosive or degenerative c hange. Soft tissues are unremarkable. Impression: Hallux valgus with mild degenerative change at the first MTP joint. Reviewed, dictated and finalized at location M. Impression: Hallux valgus with mild degenerative change at the first MTP joint.
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
--- OUTSIDE RECORDS SUMMARY | 2025-01-16 18:12 | XMS_ITS | Clinical Summary ---
Author Organization [facility] Address [address] [place] [address] Care Team Providers Care Packing House Supervisor Name Role Phone Maynor Adame MD Primary Care Provider Source Comments [facility],non-owned Affiliates and Associated Physician Practices is amultiple site organization consisting of ambulatory clinics and hospital sitesin [place], [place], [place] and [place]. This disclosure is being madepursuant to the Care Everywhere program and may not contain all information available regarding this patient. Last updated 18.[facility] [employer] Allergies Active Allergy Reactions Criticality Noted Date Comments Bee Venom Anaphylaxis High 02/26/2019 Contrast-Iodinated Agents For Ct/Other Unknown Low 03/12/2019 Fluorescein Anaphylaxis High 04/24/2012 Fluoride Preparations Anaphylaxis High 04/10/2020 Flouracine. Gluten Meal Diarrhea,Headache,Na use a and/or Vomiting,Unknown Low 01/05/2019 Medications * Be aware that medications may not be up to date on this document. Alwaysverify current medications with the patient. valACYclovir (Valtrex) 1 GM tablet 4 Active traZODone (Desyrel) 50 MG tablet Take 1 (one) tablet by mouth at bedtime Active topiramate (Topamax) 25 MG tablet TAKE 1 TO 2 TABLETS BY MOUTH DAILY 4 Active rizatriptan, disintegrating, (Maxalt SPORTS EDITOR) 10 MG tablet PLEASE SEE ATTACHED FOR DETAILED DIRECTIONS 4 Active Nurtec 75 MG tablet TAKE 1 TABLET BY MOUTH EVERY OTHER DAY NEEDED FOR MIGRAINE HEADACHE TAKE DOSE EVERY OTHER DAY 5 Active Xiidra 5 % opthalmic solution 4 Active FLUoxetine (PROzac) 40 MG capsule Take 1 (one) capsule by mouth once daily Active cyanocobalamin (Vitamin B-12) injection 4 Active amphetamine-dex troamphetamine XR 24hr (Adderall XR) 25 MG capsule Take 2 (two) capsules by mouth once daily Active Encounters Date Type Department Care Team Description 11/07/2024 3:00 PM CDT Office Visit [facility] [address] [place] [address] Glenn Johnston MD Chronic intractable headache, unspecified headache type (Primary Dx); Intracranial hypotension; 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; History of lumbosacral spine surgery; Developmental venous anomaly, cerebral (HCC); Forgetfulness 11/02/2024 Transcribe Orders [place] [address] [facility] [place] [address] Velazquez, Lyric Migraine without status migrainosus, not intractable, unspecified migraine type from Last 3 Months Immunizations Immunization Administration Dates Next Due MODERNA SARS-COV-2 COVID-19 VACCINE 0.25ML 11/21 Social History Tobacco Use Types Packs/Day Years Used Date Smoking Tobacco: Never Assessed Comments Unknown Sex and Gender Information Value Date Recorded Sex Assigned at Not on file Legal Sex Female 6:38 AM SENIOR APPLICATIONS ENGINEER Gender Identity Not on file Sexual Orientation Not on file Last Filed Vital Signs Vital Sign Reading Time Taken Comments Blood Pressure 106/74 11/07/2024 3:10 PM CDT Pulse 77 11/07/2024 3:10 PM CDT Temperature - - Respiratory Rate - - Oxygen Saturation - - Inhaled Oxygen Concentration - - Weight - - Height 175.3 cm (5' 9) 11/07/2024 3:10 PM CDT Body Mass Index - - Plan of Treatment Upcoming Encounters Date Type Department Care Team (Late st Contact Info) Description 03/12/2025 2:00 PM CDT Office Visit [facility] [address] [facility] [address] [place] [phone] Glenn Johnston MD [address] [place] [address] [place] [address] [place] [address] Health Maintenance Due Date Last Done Comments COLOGUARD (AGES 45-75) - COLON CA SCREENING 1963 COLON MONITORING 1963 COLONOSCOPY - COLON CA SCREENING 1963 CT COLONOGRAPHY - COLON CA SCREENING 1963 Colorectal Cancer Screening 1963 FIT - COLON CA SCREENING 1963 FLEX SIG - COLON CA SCREENING 1963 LIPID TESTING 1963 MAMMOGRAM 1963 HIV SCREENING 11/12/1978 HEPATITIS C SCREENING 11/08/1981 DTAP/TDAP/TD VACCINES (1 - Tdap) 11/12/1982 PNEUMOCOCCAL VACCINE 50+ (1 of 1 - PCV) 11/12/2013 ZOSTER VACCINE (1 of 2) 11/12/2013 COVID-19 VACCINE (4 - season) 2024 11/21/2021, 12/10/2020, 11/19/2020 DEPRESSION SCREENING 08/08/2024 INFLUENZA VACCINE (Season Ended) 2025 06/03/2021, 04/23/2020, 04/21/2017, Additional history exists PAP SMEAR 01/17/2027 01/18/2024, 01/18/2024 Respiratory Syncytial Virus (RSV) Vaccine Pt: or [...] on patient's age to complete this topic Insurance [facility] Member Subscriber Plan / Payer (Ef fective 2022-Present) Name:Sahara Colby Relation to Subscriber:Spouse Name:WES COLBY Leanna Date of :1961 Payer ID:Not on file Type:Commercial Address: [address] Hospital/[facility] Address: [facility] [address] [place] [address] COMMERCIAL [facility] Member Subscriber Plan / Payer (Ef fective for All Dates) Name:Sahara Cloby Relation to Subscriber:Self Name:Sahara Colby Payer ID:Not on file Group ID:Not on file Type:Commercial Address: [address] Care Teams Packing House Supervisor Relationship Specialty Start Date End Date Maynor Adame MD [address] [facility] [address] [place] [address] PCP - General 11/30/21
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
--- OUTSIDE RECORDS SUMMARY | 2025-01-16 18:12 | XMS_ITS | Encounter Summary ---
Author Organization [facility] Address [address] [place] [address] Phone Care Team Providers Care Ceramic Chemist Name Role Phone Dejan Rankin MD Primary Care Provider [phone] Maynor Adame MD Primary Care Provider [phone] Encounter Details Date Type Department Care Team (Late st Contact Info) Description 10/26/2019 Telephone [facility] Scheduling [address] [place] [address] Sydni Sanchez Aleksandra Social History Tobacco Use Types Packs/Day Years Used Date Smoking Tobacco: Never Smokeless Tobacco: Never Alcohol Use Standard Drinks/Week Comments Yes 7 (1 standard drink = 0.6 oz pur e alcohol) Comments No Sex and Gender Information Value Date Recorded Sex Assigned at Not on file Legal Sex Female 6:28 AM DRIER BELT CONVEYOR Gender Identity Not on file Sexual Orientation Not on file 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
--- OUTSIDE RECORDS SUMMARY | 2025-01-16 18:13 | XMS_ITS | Continuity of Care Document ---
Author Name [facility] Organization [facility] Care Team Providers Care Linesperson Name Role Phone [facility] Unavailable Unavailable Problems Combined list of problems from Department of Defense and Veterans Affairs facilities. It does not include entries that were removed or entered in error. Problem Status Onset Date Problem Type Date of Resolution Comments Source BLADDER HYPERACTIVITY Active Condition DoD Cervical Pap Smear Active Condition to be notified of resutls DoD Inquiry And Counseling: Family Functioning Inactive Condition DoD DEPRESSION WITH ANXIETY Active Condition Extensive discussion on all aspects of current therapy in regards to psychcology and further marital counseling ensured. The issue of child-rearing and education of the children was thoughly discussed/outlin ed in the sense of home schooling vs public/private outside teaching. Her concerns for her kids social maturity was discussed in treatment terms. Lastly, a summary of her progress and outlook for continued tx atfter PCS was initiated. Her new tentative PCS is to be at [place] in [place]. Pt related a positive response to the future directed treatment plan. DoD ADHD, COMBINED TYPE Active Condition DoD CERVICAL DYSPLASIA Active Condition 6 mo f/u pap done today. If nl, pt to RTC in 6 mos for annual and last f/u. Pt advised of plan; verbalizes good understanding DoD ASTIGMATISM - REGULAR Active Condition [facility] REFRACTIVE ERROR - MYOPIA Active Condition DoD visit for: new patient eye exam Inactive Condition DoD ANEMIA Active Condition Mild; poss ibly due to hydration status. Will follow. DoD visit for: camp physical Inactive Condition Cleared for all activities DoD ADHD, PREDOMINANTLY HYPERACTIVE - IMPULSIVE Active Condition Med re-fill... DoD feelings of urinary urgency Active Condition to f/u as advised by urologist DoD visit for: contraceptive surveillance pill Active Condition Discussed oc's with pt----will try another brand of oc's to see if acne improves. If no improvement, [place] [facility] ROUTINE PELVIC EXAM Active Condition DoD MYALGIA AND MYOSITIS Active Condition Benign exam ESR pending. No treatment required. Use of proper shoes discussed concerning her foot pain [facility] ROUTINE GYNECOLOGICAL EXAM WITH CERVICAL PAP SMEAR Active Condition DoD NO PSYCHIATRIC DIAGNOSIS ON AXIS III Inactive Condition DoD DEPRESSION Active Condition DoD ATTENTION-DEFICIT / HYPERACTIVITY DISORDER, RESIDUAL STATE Active Condition DoD NO PSYCHIATRIC DIAGNOSIS ON AXIS II Inactive Condition DoD ATTENTION-DEFICIT HYPERACTIVITY DISORDER Active Condition DoD CERVICAL DYSPLASIA: MILD Active Condition DoD ORAL CAVITY NEOPLASM MINOR SALIVARY GLAND Active Condition a- snip removed DoD VARICOSE VEINS Active Condition see above DoD ACTINIC KERATOSIS Active Condition a- LN2 w/ a F-T-F method and a total freeze time of 5-10 sec.b- Wound care instructions and sheet provided DoD visit for: screening exam malignant neoplasm skin Inactive Condition Neg. skin canc er screening DoD visit for: screening exam for malignant neoplasm cervix Inactive Condition DoD Preventive Medicine Estab Patient Checkup Adult 40-64 Inactive Condition s/p colo wnl recently, pending mammo, non smoker, occas etoh use DoD ACNE Active Condition DoD ARTHRITIS Active Condition ? seroneg arthritis - gave pt prescription for pamelor 25mg qhs - but instructed to hold for now and will refer to Rheumatology to assess if pt candidate for DMARD tx, pt to f/u after appt DoD Patient Education - Self-Examination Of Breasts Inactive Condition DoD visit for: issue repeat prescription for medication Inactive Condition DoD Pelvic Exam (Internal) Inactive Condition DoD visit for: examination Inactive Condition DoD Pain in joint, hand Active Condition will order EMG of the upper extremities through [facility]. DoD joint pain, localized in the hip Active Condition Left hip DoD joint pain fingers Active Condition DoD Mammogram - Abnormal Active Condition DoD visit for: screening malignant neoplasm colon Inactive Condition DoD SKIN NEOPLASM MALIGNANT CARCINOMA Active Condition See SF600 DoD Skin Color & Pigmentation Active Condition DoD NORMAL ROUTINE HISTORY AND PHYSICAL Inactive Condition Annual PAP, please see form. Mammo / US for RUQ mobile mass. Consult to gen surgery. DoD CERUMEN IMPACTION Inactive Condition Pt with hx of Qtip use and cerumen impactiopn. Intructed on avoiding Qtips. F/u as needed for ear cleaning in ENT clininc DoD Medications Combined list of outpatient medications from Department of Defense and Veterans Affairs facilities.Medications provided include 1) outpatient medications from the last 15 months, and 2) patient-reported medications. Medication Details Route Status Patient Instructions Prescription Expires Prescription Number Last Dispense Date Ordering Provider Order Date Order Qty Source DEXTROAMPHE TAMINE-AMPH ET ER (dextroamph etamine sulf-saccha rate/amphet amine sulf-aspart ate), 25 MG, CAP ER 24H, ORAL, AMNEAL PHARMACE, 100 ea. BOTTLE Active [id number] 2023 60 Pharmac y Data Transac tion Service Facilit y DEXTROAMPHE TAMINE-AMPH ET ER (dextroamph etamine sulf-saccha rate/amphet amine sulf-aspart ate), 25 MG, CAP ER 24H, ORAL, AMNEAL PHARMACE, 100 ea. BOTTLE Active [id number] 4 2023 60 Pharmac y Data Transac tion Service Facilit y DEXTROAMPHE TAMINE-AMPH ET ER (dextroamph etamine sulf-saccha rate/amphet amine sulf-aspart ate), 25 MG, CAP ER 24H, ORAL, GRANULES PHARMA, 100 ea. BOTTLE Active [id number] 2023 60 Pharmac y Data Transac tion Service Facilit y DEXTROAMPHE TAMINE-AMPH ETAMINE (DEXTROAMPH ETAMINE/AMP HETAMINE), 25 MG, CAP ER 24H, ORAL, ACTAVIS ELIZABE, 100 ea. BOTTLE Cancele d [id number] : 2023 0 Pharmac y Data Transac tion Service Facilit y FLUOXETINE HCL (fluoxetine HCl), 40 MG, CAPSULE, ORAL, PROFICIENT RX L, 120 ea. BOTTLE Active [id number] 4 2023 90 Pharmac y Data Transac tion Service Facilit y HEPLISAV-B (hepatitis B vaccine recombinant /vaccine adjuvant CpG 1018/PF), 20 MCG/0.5, SYRINGE, INTRAMUSC, DYNAVAX TECHNOL, .5 ml SYRINGE Active [id number] 4 2023 0.5 Pharmac y Data Transac tion Service Facilit y RIZATRIPTAN (RIZATRIPTA N BENZOATE), 10 MG, TAB RAPDIS, ORAL, AUROBINDO PHARM, 9 ea. BLIST PACK Active [id number] 4 2023 9 Pharmac y Data Transac tion Service Facilit y RIZATRIPTAN (rizatripta n benzoate), 10 MG, TAB RAPDIS, ORAL, RISING PHARM, 18 ea. BLIST PACK Active [id number] 4 2023 9 Pharmac y Data Transac tion Service Facilit y SHINGRIX (varicella- zoster virus glycoprotei n E,rec/AS01B adjuvant/PF ), 50 MCG/0.5, KIT, INTRAMUSC, GLAXOSMITHK LINE, 1 ea. KIT Active [id number] 4 2023 1 Pharmac y Data Transac tion Service Facilit y VALACYCLOVI R (valacyclov ir HCl), 1000 MG, TABLET, ORAL, [employer] 90 ea. BOTTLE Active [id number] 4 2023 21 Pharmac y Data Transac tion Service Facilit y Allergies, Adverse Reactions, Alerts Combined list of allergies from Department of Defense and Veterans Affairs facilities. It does not include entries that were removed or entered in error. Substance Category Reaction Severity Reaction type Status Date Reported Comments Source FLUORESCEIN {Cla } Drug allergy (disorder ) Anaphylaxis active 5 [facility] Immunizations Combined list of available immunizations from the Department of Defense and Veterans Affairs facilities. Immunization Series Date Given Administered By Site Reaction Lot Number CVX Code Drug Core Dropper Status Comments Source HepB-CpG 2023 () Not Given HepB-CpG DoD zoster recombinant 2023 () Not Given zoster recombina nt DoD COVID-19, mRNA, LNP-S, PF, 100 mcg or 50 mcg dose 2021 TURABELIDZE, () Not Given COVID-19, mRNA, LNP-S, PF, 100 mcg or 50 mcg dose DoD Influenza, injectable, MDCK, preservative free, quadrivalent 2020 ALUL, () Not Given Influenza , injectabl e, MDCK, preservat anthony free, quadrival ent DoD tetanus toxoid, reduced diphtheria toxoid, and acellular pertu is vaccine, adsorbed 1 2006 Unknown, Provider [id number] Sanofi Pasteur ([facility]) complet ed tetanus toxoid, reduced diphtheri a toxoid, and acellular pertussis vaccine, adsorbed DoD Encounters Combined list of: 1) Encounters from Department of Veterans Affairs facilities going backup to the last 18 months, not all VA inpatient encounters are included; 2) Encounters from the Department of Defense facilities going backup to 280 months. Location Location Details Encounter Type Encounter Number Reason For Visit Attending Provider ADM Date DC Date Status Disposition Source [facility](Ty laryngolo gy Clinic) OUTPATIENT [id number] AMIE RESENDEZS 03/02 Released w/o Limitations [facility](O tolaryn gology Clinic) [facility]) OUTPATIENT [id number] ANNUAL BEE GOLDBERG 04/03 Released w/o Limitations [facility](F light Medicin e Group Practic e) [facility](Derek matology Clinic) OUTPATIENT [id number] INNA ROBERTS 04/08 Released w/o Limitations [facility](D ermatol ogy Clinic) [facility](Gen eral Surgery Clinic) OUTPATIENT [id number] SOFIA RIVAS 05/11 Released w/o Limitations [facility](G eneral Surgery Clinic) [facility]) OUTPATIENT [id number] 38 YO F hands, feet stiff, swollen painful x 4 days NBA Scales 07/29 Released w/o Limitations [facility](F light Medicin e Group Practic e) [facility]) OUTPATIENT [id number] f/u for joint pain JAVIER Tavares 10/09 Released w/o Limitations [facility](F light Medicin e Group Practic e) [facility]) OUTPATIENT [id number] 39 y/o f pap and refill b/c [facility] YUKI COLIN V 04/16 Released w/o Limitations [facility](F light Medicin e Group Practic e) [facility](Int ernal Medicine Clinic) OUTPATIENT [id number] ARTHRINANO MYERS 04/30 Released w/o Limitations [facility](I nternal Medicin e Clinic) [facility]) OUTPATIENT [id number] Leny pap appt [facility] YUKI COLIN V 05/06 Released w/o Limitations [facility](F light Medicin e Group Practic e) [facility]ology [facility]) OUTPATIENT [id number] INNA ROBERTS 05/26 Released w/o Limitations [facility](D ermatol ogy Clinic) [facility](Derek matology Clinic) OUTPATIENT [id number] INNA ROBERTS E 05/28 Released w/o Limitations [facility](D ermatol ogy Clinic) [facility](Derek matology Clinic) OUTPATIENT [id number] INNA ROBERTS E 06/02 Released w/o Limitations [facility](D ermatol ogy Clinic) [facility](Access Director ecology Clinic) OUTPATIENT [id number] KRISTAL HARGROVE 06/07 Released w/o Limitations [facility](G ynecolo gy Clinic) [facility] [employer] [place] [employer](G ynecology Clinic) OUTPATIENT [id number] pap HÉCTOR BIRCH 03/01 Released w/o Limitations [employer] [place] [employer] (Gyneco logy Clinic) [facility] [place] [employer](F light Medicine [facility]) OUTPATIENT [id number] MANJULA Pedraza 05/17 Released w/o Limitations [employer] [place] [employer] (Flight Medicin e 22 [facility]) [employer] [place] [employer](F light Medicine [facility]) TELE CONSULT [id number] MED REFILL MANJULA WALDROP 10/06 [employer] [place] [employer] (Flight Medicin e 22 [facility]) [employer] [employer] [place] [employer](G yn Contract) OUTPATIENT [id number] annual pap EMANUEL BERG WHMIKEY 10/13 Released w/o Limitations [employer] [employer] (Access Director Contrac t) [facility] [place] [employer](F light Medicine [facility]) TELE CONSULT [id number] MED REFILL MANJULA WALDROP 12/02 [employer] [employer] [employer] (Flight Medicin e 22 [facility]) [employer] [employer](F light Medicine 22 [facility]) TELE CONSULT [id number] NEEDS REFERRA MANJULA WORRELL 12/28 [employer] [employer] [employer] (Flight Medicin e 22 [facility]) [employer] [employer](F light Medicine 22 [facility]) TELE CONSULT [id number] Discuss further care CHRISTENSE N, WES E 12/30 [employer] [employer] [employer] (Flight Medicin e 22 [facility]) [employer] [employer](F light Medicine [facility]) OUTPATIENT [id number] kishore boyce CHRISTENSE N, WES E 01/12 Released w/o Limitations [employer] [employer] (Flight Medicin e 22 [facility]) [employer] [employer](O ptometry Clinic [facility]) OUTPATIENT [id number] Routine Eye Exam SUSIE MARES 03/13 Released w/o Limitations [employer] [employer] (Optome try Clinic [facility]) [employer] [employer](G ynecology Clinic) OUTPATIENT [id number] HÉCTOR Vail 03/31 Released w/o Limitations [employer] [employer] (Gyneco logy Clinic) [employer] [employer](F light Medicine 22 [facility]) OUTPATIENT [id number] CHRISTENSE N, WES E 07/17 Released w/o Limitations [employer] [employer] (Flight Medicin e 22 [facility]) [employer] [employer](G ynecology Clinic) OUTPATIENT [id number] annual EMANUEL BERG 09/13 Released w/o Limitations [employer] [employer] (Gyneco logy Clinic) Procedures Combined list of: 1) Procedures from Department of Veterans Affairs facilities going back up to thelast 18 months, not all VA non-surgical procedures are included; 2) All procedures from the Department of Defense facilities. Procedure Procedure Type Code Date Perfomer Comments Sourc e Screening papanicolaou smear; obtaining, preparing and conveyance of cervical or vaginal smear to laboratory 09/13/19 08 MORENA EMANUELLIOR Vega Determination Of Refractive State Determination Of Refractive State [id number] 03/20/20 07 SUSIE MARES Ophthalmological New Patient Start Comprehensive Care Ophthalmological New Patient Start Comprehensive Care [id number] 03/20/20 07 SUSIE MARES Fecal Analysis - Occult Blood 03/01/20 06 HÉCTOR MAST AMS Screening papanicolaou smear; obtaining, preparing and conveyance of cervical or vaginal smear to laboratory 03/01/20 06 KEZIA CARLOS HÉCTOR E Silvia Psychiatric Evaluation Review of Records and Reports Psychiatric Evaluation Review of Records and Reports [id number] 12/29/19 06 JOHN HARDEN Psychiat Therapy Indiv Appr 20-30 Min W/ Med Eval Managemt Psychiat Therapy Indiv Appr 20-30 Min W/ Med Eval Managemt [id number] 09/09/19 06 JOHN HARDEN Psychiat Therapy Indiv Appr 20-30 Min W/ Med Eval Managemt Psychiat Therapy Indiv Appr 20-30 Min W/ Med Eval Managemt [id number] 07/16/20 05 JOHN HARDEN Colposcopy Cervix With Endocervical Curettage Colposcopy Cervix With Endocervical Curettage 49656 06/07/20 05 KRISTAL PATEL Colposcopy With Biopsy Colposcopy With Biopsy 13084 06/07/20 05 KRISTAL PATEL Colposcopy Vagina Colposcopy Vagina 45062 06/07 05 KRISTAL PATEL Destruction Of Benign Lesion By Any Method One Lesion 06/02/20 05 INNA ROBERTS Sclerosing Telangiectasia Limb / Trunk Sclerosing Telangiectasia Limb / Trunk [id number] 05/28/20 05 INNA ROBERTS Destruction Of Benign Lesion By Any Method One Lesion 05/26/20 05 ROBERTS, INNA E DoD Destruct Of Benign Lesion By Any Method Second Through 14 05/26/20 05 INNA ROBERTS DoD Cervical Pap Smear Cervical Pap Smear 08250 05 YUKI COLIN V DoD Psychiat Therapy Indiv Appr 45-50 Min W/ Med Eval Managemt Psychiat Therapy Indiv Appr 45-50 Min W/ Med Eval Managemt [id number] 03/22/20 05 JOHN HARDEN DoD Special ENT Services Binocular Microscopy Special ENT Services Binocular Microscopy [id number] 03/02/20 04 ELEANOR RESENDEZ DoD SCREENING PAPANICOLAOU SMEAR; OBTAINING, PREPARING AND CONVEYANCE OF CERVICAL OR VAGINAL SMEAR TO LABORATORY 09/13/19 08 [facility] DETERMINATION OF REFRACTIVE STATE 03/13/20 07 DoD SCREENING PAPANICOLAOU SMEAR; OBTAINING, PREPARING AND CONVEYANCE OF CERVICAL OR VAGINAL SMEAR TO LABORATORY 10/14/19 07 DoD BLOOD,OCCULT,BY PEROXIDASE ACTIV (EG,GUAIAC),QUAL;FECES, CONSECUTIVE COLLECTED SPECIMENS W SING DETERMIN,FOR COLORECTAL NEOPLAS SCREEN (IE,PAT PROVIDE 3 CARDS/SING TRIPLE CARD FOR CONSECUTIVE COLLECT) 03/01/20 06 DoD OPHTHALMOSCOPY, EXTENDED, WITH RETINAL DRAWING (EG, FOR RETINAL DETACHMENT, MELANOMA), WITH INTERPRETATION AND REPORT; INITIAL 01/28/20 04 DoD INDIVIDUAL PSYCHOTHERAPY, INSIGHT ORIENTED, BEHAVIOR MODIFYING AND/OR SUPPORTIVE, IN AN OFFICE OR OUTPATIENT FACILITY, APPROXIMATELY 20 TO 30 MINUTES [id number] W THE PATIENT; W MED EVAL & MGT SER 01/09/20 04 DoD INDIVIDUAL PSYCHOTHERAPY, INSIGHT ORIENTED, BEHAVIOR MODIFYING AND/OR SUPPORTIVE, IN AN OFFICE OR OUTPATIENT FACILITY, APPROXIMATELY 20 TO 30 MINUTES [id number] W THE PATIENT; W MED EVAL & MGT SER 12/11/19 04 DoD PHARMACOLOGIC MANAGEMENT, INCLUDING PRESCRIPTION, USE, AND REVIEW OF MEDICATION WITH NO MORE THAN MINIMAL MEDICAL PSYCHOTHERAPY 11/20/19 04 DoD PSYCHIATRIC DIAGNOSTIC INTERVIEW EXAMINATION 10/31/19 04 DoD INDIVIDUAL PSYCHOTHERAPY, INSIGHT ORIENTED, BEHAVIOR MODIFYING AND/OR SUPPORTIVE, IN AN OFFICE OR OUTPATIENT FACILITY, APPROXIMATELY 20 TO 30 MINUTES [id number] W THE PATIENT; W MED EVAL & MGT SER 10/03/19 04 DoD INDIVIDUAL PSYCHOTHERAPY, INSIGHT ORIENTED, BEHAVIOR MODIFYING AND/OR SUPPORTIVE, IN AN OFFICE OR OUTPATIENT FACILITY, APPROXIMATELY 20 TO 30 MINUTES [id number] W THE PATIENT; W MED EVAL & MGT SER 09/05/19 04 DoD PSYCHIATRIC DIAGNOSTIC INTERVIEW EXAMINATION 07/22/20 03 [facility] PREPARATION OF REPORT OF PATIENT'S PSYCHIATRIC STATUS, HISTORY, TREATMENT, OR PROGRESS (OTHER THAN FOR LEGAL OR CONSULTATIVE PURPOSES) FOR OTHER INDIVIDUALS, AGENCIES, OR INSURANCE CARRIERS 06/10/20 03 [facility] NEUROPSYCHOLOGICAL TESTING BATTERY (EG, MANDI-REITAN, LURIA, WAIS-R) WITH INTERPRETATION AND REPORT, PER HOUR 05/23/20 03 [facility] FUNDUS PHOTOGRAPHY WITH INTERPRETATION AND REPORT 05/14/20 03 [facility] MONITORING, NOT OTHERWISE SPECIFIED 02/08/19 98 [facility] OTHER ARTIFICIAL RUPTURE OF MEMBRANES 02/08/19 98 [facility] REPAIR OF OTHER CURRENT OBSTETRIC LACERATION 02/08/19 98 [facility] OTHER ARTIFICIAL RUPTURE OF MEMBRANES 03/26/19 96 [facility] VACUUM EXTRACTION WITH EPISIOTOMY 03/26/19 96 [facility] MONITORING, NOT OTHERWISE SPECIFIED 03/26/19 96 [facility] PSYCHIATRIC EVALUATION OF HOSPITAL RECORDS, OTHER PSYCHIATRIC REPORTS, PSYCHOMETRIC AND/OR PROJECTIVE TESTS, AND OTHER ACCUMULATED DATA FOR MEDICALDIAGNOSTIC PURPOSES 12/29/19 06 [facility] INDIVIDUAL PSYCHOTHERAPY, INSIGHT ORIENTED, BEHAVIOR MODIFYING AND/OR SUPPORTIVE, IN AN OFFICE OR OUTPATIENT FACILITY, APPROXIMATELY 20 TO 30 MINUTES [id number] W THE PATIENT; W MED EVAL & MGT SER 09/09/19 06 [facility] INDIVIDUAL PSYCHOTHERAPY, INSIGHT ORIENTED, BEHAVIOR MODIFYING AND/OR SUPPORTIVE, IN AN OFFICE OR OUTPATIENT FACILITY, APPROXIMATELY 20 TO 30 MINUTES [id number] WITH THE PATIENT 07/16/20 05 [facility] COLPOSCOPY OF THE CERVIX INCLUDING UPPER/ADJACENT VAGINA; WITH BIOPSY(S) OF THE CERVIX AND ENDOCERVICAL CURETTAGE 06/07/20 05 DoD DESTRUCTION (EG, LASER SURGERY, ELECTROSURGERY, CRYOSURGERY, CHEMOSURGERY, SURGICAL CURETTEMENT), PREMALIGNANT LESIONS (EG, ACTINIC KERATOSES); FIRST LESION 06/02/20 05 DoD INJECTION(S) OF SCLEROSANT FOR SPIDER VEINS (TELANGIECTASIA), LIMB OR TRUNK 05/28/20 05 [facility] DESTRUCT (EG, LASER SURGERY, ELECTROSURGERY, CRYOSURGERY, CHEMOSURGERY, SURGICAL CURETTEMENT), PREMALIGNANT LESIONS (EG, ACTINIC KERATOSES); 2ND THRU 14 LESIONS, EA (LIST SEP ADDITION CD, 1ST LESION) 05/26/20 05 [facility] CYTOPATHOLOGY, SMEARS, CERVICAL OR VAGINAL, UP TO THREE SMEARS; SCREENING BY CEMENT CUTTER UNDER PHYSICIAN SUPERVISION 05/06/20 05 DoD SCREENING PAPANICOLAOU SMEAR; OBTAINING, PREPARING AND CONVEYANCE OF CERVICAL OR VAGINAL SMEAR TO LABORATORY 04/16/20 05 DoD INDIVIDUAL PSYCHOTHERAPY, INSIGHT ORIENTED, BEHAVIOR MODIFYING AND/OR SUPPORTIVE, IN AN OFFICE OR OUTPATIENT FACILITY, APPROXIMATELY 45 TO 50 MINUTES [id number] W THE PATIENT; W MED EVAL & MGT SER 03/22/20 05 [facility] INDIVIDUAL PSYCHOTHERAPY, INSIGHT ORIENTED, BEHAVIOR MODIFYING AND/OR SUPPORTIVE, IN AN OFFICE OR OUTPATIENT FACILITY, APPROXIMATELY 20 TO 30 MINUTES [id number] WITH THE PATIENT 02/23/20 05 DoD INDIVIDUAL PSYCHOTHERAPY, INSIGHT ORIENTED, BEHAVIOR MODIFYING AND/OR SUPPORTIVE, IN AN OFFICE OR OUTPATIENT FACILITY, APPROXIMATELY 45 TO 50 MINUTES [id number] W THE PATIENT; W [facility] EVAL & MGT SER 12/25/19 05 DoD INDIVIDUAL PSYCHOTHERAPY, INSIGHT ORIENTED, BEHAVIOR MODIFYING AND/OR SUPPORTIVE, IN AN OFFICE OR OUTPATIENT FACILITY, APPROXIMATELY 45 TO 50 MINUTES [id number] W THE PATIENT; [facility] EVAL & MGT SER 11/27/19 05 [facility] INDIVIDUAL PSYCHOTHERAPY, INSIGHT ORIENTED, BEHAVIOR MODIFYING AND/OR SUPPORTIVE, IN AN OFFICE OR OUTPATIENT FACILITY, APPROXIMATELY 75 TO 80 MINUTES [id number] WITH THE PATIENT 10/01/19 05 DoD INDIVIDUAL PSYCHOTHERAPY, INSIGHT ORIENTED, BEHAVIOR MODIFYING AND/OR SUPPORTIVE, IN AN OFFICE OR OUTPATIENT FACILITY, APPROXIMATELY 45 TO 50 MINUTES [id number] WITH THE PATIENT 07/08/20 04 [facility] INDIVIDUAL PSYCHOTHERAPY, INSIGHT ORIENTED, BEHAVIOR MODIFYING AND/OR SUPPORTIVE, IN AN OFFICE OR OUTPATIENT FACILITY, APPROXIMATELY 45 TO 50 MINUTES [id number] WITH THE PATIENT 06/17/20 04 [facility] UNLISTED SPECIAL SERVICE, PROCEDURE OR REPORT 06/03/20 04 [facility] INDIVIDUAL PSYCHOTHERAPY, INSIGHT ORIENTED, BEHAVIOR MODIFYING AND/OR SUPPORTIVE, IN AN OFFICE OR OUTPATIENT FACILITY, APPROXIMATELY 45 TO 50 MINUTES [id number] WITH THE PATIENT 05/26/20 04 [facility] PSYCHIATRIC DIAGNOSTIC INTERVIEW EXAMINATION 04/28/20 04 [facility] CERVICAL OR VAGINAL CANCER SCREENING; PELVIC AND CLINICAL BREAST EXAMINATION 04/03/20 04 DoD REMOVAL IMPACTED CERUMEN REQUIRING INSTRUMENTATION, UNILATERAL 03/02/20 04 DoD PROFESSIONAL SER FOR ALLERGEN IMMUNOTHER IN THE OFFICE/INSTITUTION OF THE PRESCRIBING PHYSICIAN/OTH QUALIFIED HEALTH DRAW FRAME TENDER,INCLUDING PROVISION OF ALLERGENIC EXTRACT;2/MORE INJECTIONS 12/03/19 DoD PROFESSIONAL SERVICES FOR ALLERGEN IMMUNOTHERAPY NOT INCLUDING PROVISION OF ALLERGENIC EXTRACTS; 2 OR MORE INJECTIONS 10/04/19 DoD PROFESSIONAL SERVICES FOR ALLERGEN IMMUNOTHERAPY NOT INCLUDING PROVISION OF ALLERGENIC EXTRACTS; 2 OR MORE INJECTIONS 09/30/19 DoD PROFESSIONAL SER FOR ALLERGEN IMMUNOTHER IN THE OFFICE/INSTITUTION OF THE PRESCRIBING PHYSICIAN/OTH QUALIFIED HEALTH DRAW FRAME TENDER,INCLUDING PROVISION OF ALLERGENIC EXTRACT;2/MORE INJECTIONS 09/19/19 DoD PROFESSIONAL SER FOR ALLERGEN IMMUNOTHER IN THE OFFICE/INSTITUTION OF THE PRESCRIBING PHYSICIAN/OTH QUALIFIED HEALTH DRAW FRAME TENDER,INCLUDING PROVISION OF ALLERGENIC EXTRACT;2/MORE INJECTIONS 09/16/19 DoD PROFESSIONAL SER FOR ALLERGEN IMMUNOTHER IN THE OFFICE/INSTITUTION OF THE PRESCRIBING PHYSICIAN/OTH QUALIFIED HEALTH DRAW FRAME TENDER,INCLUDING PROVISION OF ALLERGENIC EXTRACT;2/MORE INJECTIONS 09/05/19 DoD PROFESSIONAL SER FOR ALLERGEN IMMUNOTHER IN THE OFFICE/INSTITUTION OF THE PRESCRIBING PHYSICIAN/OTH QUALIFIED HEALTH DRAW FRAME TENDER,INCLUDING PROVISION OF ALLERGENIC EXTRACT;2/MORE INJECTIONS 08/30/19 DoD PROFESSIONAL SER FOR ALLERGEN IMMUNOTHER IN THE OFFICE/INSTITUTION OF THE PRESCRIBING PHYSICIAN/OTH QUALIFIED HEALTH DRAW FRAME TENDER,INCLUDING PROVISION OF ALLERGENIC EXTRACT;2/MORE INJECTIONS 08/25/19 DoD PROFESSIONAL SER FOR ALLERGEN IMMUNOTHER IN THE OFFICE/INSTITUTION OF THE PRESCRIBING PHYSICIAN/OTH QUALIFIED HEALTH DRAW FRAME TENDER,INCLUDING PROVISION OF ALLERGENIC EXTRACT;2/MORE INJECTIONS 06/28/20 DoD PROFESSIONAL SER FOR ALLERGEN IMMUNOTHER IN THE OFFICE/INSTITUTION OF THE PRESCRIBING PHYSICIAN/OTH QUALIFIED HEALTH DRAW FRAME TENDER,INCLUDING PROVISION OF ALLERGENIC EXTRACT;2/MORE INJECTIONS 05/31/20 DoD PROFESSIONAL SER FOR ALLERGEN IMMUNOTHER IN THE OFFICE/INSTITUTION OF THE PRESCRIBING PHYSICIAN/OTH QUALIFIED HEALTH DRAW FRAME TENDER,INCLUDING PROVISION OF ALLERGENIC EXTRACT;2/MORE INJECTIONS 05/04/20 DoD PROFESSIONAL SERVICES FOR ALLERGEN IMMUNOTHERAPY NOT INCLUDING PROVISION OF ALLERGENIC EXTRACTS; 2 OR MORE INJECTIONS 04/12/20 DoD PROFESSIONAL SERVICES FOR ALLERGEN IMMUNOTHERAPY NOT INCLUDING PROVISION OF ALLERGENIC EXTRACTS; 2 OR MORE INJECTIONS 04/04/20 DoD PROFESSIONAL SERVICES FOR ALLERGEN IMMUNOTHERAPY NOT INCLUDING PROVISION OF ALLERGENIC EXTRACTS; 2 OR MORE INJECTIONS 03/28/20 DoD PROFESSIONAL SERVICES FOR ALLERGEN IMMUNOTHERAPY NOT INCLUDING PROVISION OF ALLERGENIC EXTRACTS; 2 OR MORE INJECTIONS 03/11/20 DoD PROFESSIONAL SER FOR ALLERGEN IMMUNOTHER IN THE OFFICE/INSTITUTION OF THE PRESCRIBING PHYSICIAN/OTH QUALIFIED HEALTH DRAW FRAME TENDER,INCLUDING PROVISION OF ALLERGENIC EXTRACT;2/MORE INJECTIONS 12/23/19 DoD PROFESSIONAL SER FOR ALLERGEN IMMUNOTHER IN THE OFFICE/INSTITUTION OF THE PRESCRIBING PHYSICIAN/OTH QUALIFIED HEALTH DRAW FRAME TENDER,INCLUDING PROVISION OF ALLERGENIC EXTRACT;2/MORE INJECTIONS 12/08/19 DoD PROFESSIONAL SER FOR ALLERGEN IMMUNOTHER IN THE OFFICE/INSTITUTION OF THE PRESCRIBING PHYSICIAN/OTH QUALIFIED HEALTH DRAW FRAME TENDER,INCLUDING PROVISION OF ALLERGENIC EXTRACT;2/MORE INJECTIONS 10/21/19 DoD PROFESSIONAL SER FOR ALLERGEN IMMUNOTHER IN THE OFFICE/INSTITUTION OF THE PRESCRIBING PHYSICIAN/OTH QUALIFIED HEALTH DRAW FRAME TENDER,INCLUDING PROVISION OF ALLERGENIC EXTRACT;2/MORE INJECTIONS 10/16/19 DoD PROFESSIONAL SER FOR ALLERGEN IMMUNOTHER IN THE OFFICE/INSTITUTION OF THE PRESCRIBING PHYSICIAN/OTH QUALIFIED HEALTH DRAW FRAME TENDER,INCLUDING PROVISION OF ALLERGENIC EXTRACT;2/MORE INJECTIONS 10/06/19 DoD PROFESSIONAL SER FOR ALLERGEN IMMUNOTHER IN THE OFFICE/INSTITUTION OF THE PRESCRIBING PHYSICIAN/OTH QUALIFIED HEALTH DRAW FRAME TENDER,INCLUDING PROVISION OF ALLERGENIC EXTRACT;2/MORE INJECTIONS 09/22/19 DoD PROFESSIONAL SER FOR ALLERGEN IMMUNOTHER IN THE OFFICE/INSTITUTION OF THE PRESCRIBING PHYSICIAN/OTH QUALIFIED HEALTH DRAW FRAME TENDER,INCLUDING PROVISION OF ALLERGENIC EXTRACT;2/MORE INJECTIONS 09/14/19 DoD PROFESSIONAL SER FOR ALLERGEN IMMUNOTHER IN THE OFFICE/INSTITUTION OF THE PRESCRIBING PHYSICIAN/OTH QUALIFIED HEALTH DRAW FRAME TENDER,INCLUDING PROVISION OF ALLERGENIC EXTRACT;2/MORE INJECTIONS 08/31/19 DoD Social History Combined list of available smoking, tobacco, and other social history from Department of Defense and Veterans Affairs facilities. Social History Type Response Date Comment Sour e This section is an empty social history section. DoD
== END 2025-01-16 16:30 | disposition home or self-care (01) ==
PROVIDERS: PCP Internal Medicine; Visit Provider Internal Medicine
DX: M20.11 Hallux valgus (acquired), right foot (principal); M20.21 Hallux rigidus, right foot
CPT/HCPCS: 73630

== ENCOUNTER 2025-05-29 09:20 | Outpatient (CLI) | payer OTHER, SELFPAY ==
[2025-05-29 09:48] LABS: Hematocrit 40.4 % (37.0-47.0); Hemoglobin 13.1 g/dL (12.0-15.0); Immature Granulocyte Percent A 0.0 % (0-0.5); Lymphocytes Absolute Auto 1.12 K/mm3 (0.9-3.2); Mean Corpuscular HGB Conc 32.4 g/dl (32-36); Mean Corpuscular Hemoglobin 30.2 pg (26-34); Mean Corpuscular Volume 93.1 fl (80-100); Nucleated Red Blood Cells Absolute Auto 0.000 K/mm3 (0.0-0.012); Nucleated Red Blood Cells Perc 0.0 % (0.0-0.2); Platelet Count Result 248 k/mm3 (150-375); Red Blood Count 4.34 M/mm3 (4.2-5.4); White Blood Count 3.2 K/mm3 (4.5-10.0)
[2025-05-29 10:10] LABS: Alanine Aminotransferase 17 U/L (6-35); Albumin Level 4.5 g/dL (3.5-5.1); Alkaline Phosphatase 84 U/L (38-126); Anion Gap 7 mmol/L (4-12); Aspartate Amino Transferase 27 U/L (14-36); Bilirubin,Total 1.0 mg/dL (0.2-1.3); Blood Urea Nitrogen 11 mg/dL (7-17); CRP < 0.5 mg/dL (<1.0); Calcium 9.1 mg/dL (8.4-10.2); Carbon Dioxide 29 mmol/L (22-30); Chloride 102 mmol/L (98-107); Creatine Kinase 99 U/L (30-135); Glucose 98 mg/dL (65-110); Potassium 3.9 mmol/L (3.4-5.0); Sodium 138 mmol/L (137-145); Total Protein 7.6 g/dL (6.3-8.2)
[2025-05-29 10:22] LABS: Estimated Glomerular Filt Rate 36
[2025-05-29 10:25] LABS: Free T4 Free Thyroxine 1.01 ng/dL (0.78-2.19)
--- OUTSIDE RECORDS SUMMARY | 2025-05-29 10:26 | XMS_ITS | Clinical Summary ---
Author Organization [facility] Address [address] [place] [address] Care Team Providers Care Business Applications Specialist Name Role Phone Maynor Adame MD Primary Care Provider [phone] Source Comments [facility],non-owned Affiliates and Associated Physician Practices is amultiple site organization consisting of ambulatory clinics and hospital sitesin [place], [place], [place] and [place]. This disclosure is being madepursuant to the Care Everywhere program and may not contain all information available regarding this patient. Last updated 18.[facility] Allergies Active Allergy Reactions Criticality Noted Date [...] MOUTH DAILY 4 Active rizatriptan, disintegrating, ([employer]) 10 MG tablet PLEASE SEE ATTACHED FOR [...] Encounters Date Type Department Care Team Description 04/01/2025 7:48 AM CDT - 04/01/2025 1:37 PM CDT Hospital Encounter [facility] [address] [address] Radha Harris MD [facility] Discharge Disposition: Home or Self Care 04/01/2025 Travel 03/29/2025 Telephone [facility] [address] [address] Renetta Wolff RN Procedure (Pre-Call) 03/12/2025 2:00 PM CDT Office Visit [facility] [address] [place] [address] Glenn Johnston MD Ezepue, Chizoba J, MD Developmental venous anomaly, cerebral (HCC) (Primary Dx) from Last 3 Months Immunizations Immunization Administration Dates Next Due MODERNA SARS-COV-2 COVID-19 VACCINE 0.25ML 11/21 Social History Tobacco Use Types Packs/Day Years Used Date Smoking Tobacco: Never Assessed Comments Unknown Sex and Gender Information Value Date Recorded Sex Assigned at Not on file 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 Gender Identity Not on file Sexual Orientation Not on file Last Filed Vital Signs Vital Sign Reading Time Taken Comments Blood Pressure 137/85 04/01/2025 12:15 PM CDT Pulse 61 04/01/2025 12:15 PM CDT Temperature - - Respiratory Rate 17 04/01/2025 12:15 PM CDT Oxygen Saturation 92% 04/01/2025 12:15 PM CDT Inhaled Oxygen Concentration - - Weight 81.6 kg (180 lb) 04/01/2025 8:35 AM CDT Height 175.3 cm (5' 9) 04/01/2025 8:35 AM CDT Body Mass Index 26.58 04/01/2025 8:35 AM CDT Plan of Treatment Health Maintenance Due Date [...] 11/12/2013 ZOSTER VACCINE (1 of 2) 11/12/2013 DEPRESSION SCREENING 08/08/2024 COVID-19 VACCINE ( season) 2025 04/28/2023, 07/24/2022, 11/21/2021, Additional history exists INFLUENZA VACCINE (#1) 2025 , 04/28/2023, 07/24/2022, Additional history exists PAP SMEAR 01/17/2027 01/18/2024, 01/18/2024 SCREENING FOR DIABETES 04/01/2028 04/01/2025 Respiratory Syncytial Virus (RSV) Vaccine Pt: or [...] on patient's age to complete this topic Procedures Procedure Name Priority Date/Time Associated Diagnosis Comments IR CAROTID CEREBRAL ANGIOGRAM Routine 04/01/2025 10:25 AM CDT Developmental venous anomaly, cerebral (HCC) PT-INR STAT 04/01/2025 8:53 AM CDT Developmental venous anomaly, cerebral (HCC) CBC W AUTO DIFFERENTIAL SANDRA 04/01/2025 8:53 AM CDT Developmental venous anomaly, cerebral (HCC) BASIC METABOLIC PANEL (CALCIUM TOTAL) SANDRA 04/01/2025 8:53 AM CDT Developmental venous anomaly, cerebral (HCC) from Last 3 Months Results * IR Carotid Cerebral Angiogram (04/01/2025 10:25 AM CDT) Anatomical Region Laterality Modality Head X-Ray Angiograph y Narrative 04/01/2025 10:29 AM CDT Radha Harris MD 04/04/2025 2:42 PM DIAGNOSTIC CEREBRAL ANGIOGRAM CLINICAL INDICATION: The patient a 59-year-old female who presents with suspected DVA/AVM/AVF. She is here for catheter angiography to evaluate the pathology. PROCEDURE: 4 vessel cerebral angiogram. DURATION OF PROCEDURE: Approximately STONE FABRICATOR: Denton Harris MD VESSELS: Ultrasound guided access of the right radial artery Right common carotid artery angiogram: Cervical and Cerebral Left common carotid artery angiogram: Cervical and Cerebral Right vertebral artery angiogram: Cerebral Left vertebral artery angiogram: Cerebral Right radial artery angiogram ANESTHESIA: Moderate sedation on this adult patient ws ordered by the gripper machine operator, administered intravenously in my presence, and monitored by the procedure nurse as an independent trained observer who was present throughout the procedure. The following parameters were monitored: oxygen saturation, heart rate, blood pressure, and response to care. Intra-service sedation start time was 09:49 and end time was 10:15 during which I was present. Total physician intra-service sedation time was 26 minutes. For details on sedation patient evaluation, please review the evaluation in [facility]. For details on monitored clinical parameters during the intra-service sedation time, please review the procedure nurse documentation in [facility]. MATERIALS: 4 Ecuadorean micropuncture kit: [place] Mandril wire, 4 Ecuadorean transitional dilator, 21-gauge needle 5 Ecuadorean Terumo Glidesheath and mini guidewire 5 Ecuadorean Umana 2 Glidecatheter Terumo glidewire TR Band CONTRAST: 40 mL Isovue 370 FLUOROSCOPY TIME: 6.2 mins TECHNIQUE: Prior to the procedure, the technical aspects of the procedure, as well as potential risks and benefits, were explained to the patient. Specifically, the risks of cerebral infarction, hemorrhage, blindness, cranial nerve palsy, facial pain, anaphylaxis, renal failure, limb loss, arterial dissection, arterial pseudoaneurysm, and arteriovenous fistula were discussed. Informed consent was obtained. After informed consent was obtained, the patient was brought to the angiography suite. The right forearm was prepped and draped in the usual fashion. Access to the vascular system was gained in the usual way by a single-wall puncture of the right radial artery under ultrasound guidance. Ultrasound images demonstrated a patent vessel and a potrer scale image was documented. The right radial artery was accessed using a micropuncture needle. The needle entry was documented. Following a series of exchanges a 5 Ecuadorean Terumo Glidesheath was then introduced into the right radial artery over a mini guidewire and connected to a regulated pressurized infusion of heparinized saline. A cocktail of Verapamil (2.5 mg), Nitroglycerin (200 mcg), and Heparin (3000 units) was slowly injected into the right radial artery through the 5F sheath over 5 minutes, with close monitoring of blood pressure. A 5 Ecuadorean umana 2 catheter was navigated into the aortic arch. The catheter was used to select the left subclavian artery followed by the left vertebral artery and a cerebral angiogram was obtained. The catheter was returned to the arch and used to select the left common carotid artery and a cerebral angiogram was obtained. The catheter was returned to the arch and used to select the brachiocephalic artery followed by the right common carotid artery and a cerebral angiogram was obtained. The catheter was returned to the brachiocephalic artery and used to select the right subclavian artery followed by the right vertebral artery and a cerebral angiogram was obtained. All the digital angiograms performed above, were done centered over the head and neck with AP, lateral, and oblique views. All catheters and sheaths were removed from the arterial system. Hemostasis was achieved using a TR radial band hemostatic device according to instructions for its use. Hemostasis was immediate at the end of the closure procedure. The right ulnar pulse was palpable at the end of the closure procedure. The patient tolerated the procedure without immediate complications. She was returned to the recovery area and hemodynamically stable condition neurologically unchanged. The estimated blood loss was less than 10 mL. FINDINGS: There was good arterial, capillary, and venous opacification of all angiographic runs. LEFT COMMON CAROTID ARTERY, CERVICAL AND CEREBRAL: The left common carotid artery angiogram reveals a normal course and caliber of the common carotid artery. There is no significant hemodynamic stenosis at the carotid bulb. There is a normal branching pattern of the branches of the left external carotid artery. The left internal carotid artery reveals a normal course and caliber of the intracranial internal carotid artery. The middle cerebral artery and anterior cerebral artery are also normal in course and caliber as is the venous drainage. There is no evidence of aneurysm, focal stenosis, or early draining vein. RIGHT COMMON CAROTID ARTERY, CERVICAL AND CEREBRAL: The right common carotid artery angiogram reveals a normal course and caliber of the common carotid artery. There is no significant hemodynamic stenosis at the carotid bulb. There is a normal branching pattern of the branches of the right external carotid artery. The right internal carotid artery reveals a normal course and caliber of the intracranial internal carotid artery. The middle cerebral artery and anterior cerebral artery are also normal in course and caliber as is the venous drainage. There is no evidence of aneurysm, focal stenosis, or early draining vein. LEFT VERTEBRAL ARTERY, CEREBRAL: The left vertebral artery angiogram reveals no ostium stenosis. The V3, V4, and vertebrobasilar junction are normal in course and caliber. The major vessels to the cerebellum are normal in course and caliber. The basilar artery and posterior cerebral arteries are also normal in course and caliber. The venous drainage is also normal. The left posterior inferior cerebellar artery appears normal. There is no evidence of aneurysm, focal stenosis, or early draining vein. RIGHT VERTEBRAL ARTERY, CEREBRAL: The right vertebral artery angiogram reveals no ostium stenosis. The V3, V4, and vertebrobasilar junction are normal in course and caliber. The right posterior inferior cerebellar artery appears normal. There is no evidence of aneurysm, focal stenosis, or early draining vein.The remainder of the posterior circulation is as described above. COMPLICATIONS: There were no immediate complications. IMPRESSION: Normal cerebral angiogram with no evidence of abnormal vascular lesion identified in this angiogram. Radha Harris MD [facility] Neurology 04/01/2025 us Radha Harris MD IR ORDERABLES Edited Resul t - Final * PT-INR (04/01/2025 8:53 AM CDT) Pathologist [facility] PT 13.2 12.1 - 14.8 sec 04/01/2025 9:08 AM CDT [facility] INR 1.0 0.9 - 1.1 04/01/2025 9:08 AM CDT [facility] Blood BLOOD SPECIMEN / Unknown Venipuncture / Unknown 04/01/2025 8:53 AM CDT 04/01/2025 8:[address] [facility] - 04/01/2025 9:08 AM CDT Conventional Warfarin Anticoagulant Therapy: INR Reference Range: 2.0-3.0 Intensive Warfarin Anticoagulant Therapy: INR Reference Range: 2.5-3.5 Radha Harris MD LAB - COAGULATION ORDERABLES Final Result Performing Organization Address City/State/[facility] Co de Phone Number [facility] [address] [place] [address] * CBC W AUTO DIFFERENTIAL (04/01/2025 8:53 AM CDT) Pathologist [facility] WBC 4.9 4.0 - 10.7 x10E9/L 04/01/2025 9:00 AM CDT [facility] RBC Count 3.98 3.90 - 5.20 x10E12/L 04/01/2025 9:00 AM CDT [facility] Hemoglobin 11.9 11.9 - 15.8 g/dL 04/01/2025 9:00 AM CDT [facility] Hematocrit 36.8 34.8 - 46.1 % 04/01/2025 9:00 AM CDT [facility] MCV 92.5 80.0 - 98.0 fL 04/01/2025 9:00 AM CDT [facility] MCH 29.9 26.7 - 33.6 pg 04/01/2025 9:00 AM CDT [facility] MCHC 32.3 31.7 - 36.3 g/dL 04/01/2025 9:00 AM CDT [facility] RDW-CV 12.8 11.3 - 14.8 % 04/01/2025 9:00 AM CDT [facility] Platelet Count 222 150 - 420 x10E9/L 04/01/2025 9:00 AM CDT [facility] MPV 9.2 7.8 - 11.4 fL 04/01/2025 9:00 AM CDT [facility] Neutrophil % 64.9 41.0 - 74.0 % 04/01/2025 9:00 AM CDT [facility] Lymphocyte % 26.7 17.0 - 47.0 % 04/01/2025 9:00 AM CDT [facility] Monocyte % 7.6 3.0 - 11.0 % 04/01/2025 9:00 AM CDT [facility] Eosinophil % 0.0 0.0 - 7.0 % 04/01/2025 9:00 AM CDT [facility] Basophil % 0.6 0.0 - 1.6 % 04/01/2025 9:00 AM CDT [facility] Immature Granulocytes % 0.2 0.0 - 1.0 % 04/01/2025 9:00 AM CDT [facility] Neutrophil Absolute 3.15 1.60 - 7.50 x10E9/L 04/01/2025 9:00 AM CDT [facility] Lymphocyte Absolute 1.30 1.00 - 4.40 x10E9/L 04/01/2025 9:00 AM CDT [facility] Monocyte Absolute 0.37 0.15 - 1.00 x10E9/L 04/01/2025 9:00 AM CDT [facility] Eosinophil Absolute 0.00 0.00 - 0.60 x10E9/L 04/01/2025 9:00 AM T [facility] Basophil Absolute 0.03 0.00 - 0.13 x10E9/L 04/01/2025 9:00 AM T [facility] Blood BLOOD SPECIMEN / Unknown Venipuncture / Unknown 04/01/2025 8:53 AM CDT 04/01/2025 8:54 AM CDT us Radha Harris MD LAB - HEMATOLOGY ORDERABLES Final Result [facility] [address] [place] [address] * (ABNORMAL) BASIC METABOLIC PANEL (CALCIUM TOTAL) (04/01/2025 8:53 AM CDT) Glucose 100(H) 70 - 99 mg/dL 04/01/2025 9:20 AM CDT [facility] Sodium 142 136 - 145 mmol/L 04/01/2025 9:20 AM CDT [facility] Potassium 3.5 3.5 - 5.1 mmol/L 04/01/2025 9:20 AM CDT [facility] Chloride 106 98 - 107 mmol/L 04/01/2025 9:20 AM CDT [facility] CO2 26 22 - 29 mmol/L 04/01/2025 9:20 AM CDT [facility] Calcium 9.1 8.4 - 10.4 mg/dL 04/01/2025 9:20 AM CDT [facility] Anion Gap 10 6 - 16 mmol/L 04/01/2025 9:20 AM CDT [facility] BUN 10 7 - 26 mg/dL 04/01/2025 9:20 AM CDT [facility] Creatinine 0.77 0.57 - 1.11 mg/dL 04/01/2025 9:20 AM T [facility] eGFR by CKD-EPI 88(L) >=90 mL/min/1.7 3 m2 04/01/2025 9:20 AM T [facility] Comment:Estimated Glomerular Filtration Rate (eGFR) calculated using the CKD-EPI Creatinine Equation (2020), per the National Kidney Foundation and [employer]ph[employer] recommendations. Blood BLOOD SPECIMEN / Unknown Venipuncture / Unknown 04/01/2025 8:53 AM CDT 04/01/2025 8:54 AM CDT us Radha Harris MD LAB - CHEMISTRY ORDERABLES F inal Result [facility] [address] [place] [address] from Last 3 Months Insurance [employer] Member Subscriber Plan / Payer (Ef fective for All Dates) Name:Sahara Colby Abbe Relation to Subscriber:Self Name:Sahara Colby Abbe Payer ID:Not on file Group ID:Not on file Type:Commercial Address: [place] [id number] [facility] Care Teams Business Applications Specialist Relationship Specialty Start Date End Date Maynor Adame MD [address] [facility] [address] [place] [id number] [facility] - General 11/30/21
[2025-05-29 10:43] LABS: Thyroid Stimulating Hormone 2.430 uIU/mL (0.465-4.680)
[2025-05-30 12:57] LABS: Vitamin B12 859.0 pg/mL (239-931)
== END 2025-05-29 09:21 | disposition home or self-care (01) ==
LOC: ANHLAB 09:21
PROVIDERS: PCP Internal Medicine; Visit Provider Internal Medicine
DX: M62.81 Muscle weakness (generalized) (principal); R53.83 Other fatigue; Z79.899 Other long term (current) drug therapy
CPT/HCPCS: 36415; 80053; 82085; 82550; 82607; 82746; 84439; 84443; 85025; 85652; 86140